=== PATIENT | male | born 1960 | race Caucasian/White ===

== ENCOUNTER 2017-09-08 11:51 | Emergency (ER) | payer MEDICARE, MEDICAID, SELFPAY ==
[2017-09-08 11:51] VITALS: BP 103/82; PULSE 87; RESP 16; TEMP 36.9; BMI 19.9
[2017-09-08 12:26] VITALS: BP 137/96; PULSE 66; RESP 16; O2SAT 98
[2017-09-08] MEDS: 0.9% Normal Saline 1,000 ML 1000 ML IV (12:27)
[2017-09-08 12:36] LABS: Absolute Lymphocyte Count 2.83 X10^3/ul (0.83-4.51); Absolute Neutrophil Count 5.4 X10^3/uL (2.0-7.7); Basophil# 0.03 X10^3/uL; Basophil% 0.3 % (0-1); Eosinophils% 3.2 % (0-5); Hematocrit 42.1 % (40-54); Lymphocyte # 2.83 X10^3/ul (4.0); Lymphocyte % 30.4 % (19-41); Mean Corp Hgb Conc 33.3 g/gl (32-36); Mean Corpuscular Volume 96.3 fL (80-94); Mean Platelet Vol. 10.8 fl (6.2-12.0); Monocyte% 7.5 % (0-10); Neutrophil # 5.42 X10^3/uL (2.7-7.7); Neutrophil % 58.4 % (47-70); Platelet Count 187 K/mm3 (150-450); RBC Distribution Width CV 13.5 % (11.6-14.6); RBC Distribution Width SD 48.2 fl (35.1-43.9); Red Blood Count 4.37 M/mm3 (4.6-6.2); White Blood Count 9.3 K/mm3 (4.4-11.0)
[2017-09-08 12:37] LABS: POSITIVE COUNT NO; POSITIVE DIFFERENTIAL NO; POSITIVE MORPHOLOGY NO
[2017-09-08 12:48] LABS: Anion Gap 6 (5-15); BUN 10 mg/dL (7-18); BUN/Creat Ratio 12.5 RATIO (10-20); Calcium,Total 8.8 mg/dL (8.5-10.1); Chloride 108 mmol/L (98-107); EST Glomerular Filtration Rate 105 mL/min (>60); Est Glom Filt Rate - Afr Amer 127 mL/min (>60); Estimated Creatinine Clearance 86.11 ml/min; Glucose 100 mg/dL (74-106); Potassium 4.2 mmol/L (3.5-5.1); Sodium Level 137 mmol/L (136-145)
--- NOTE | 2017-09-08 13:00 | RAD_ITS ---
STUDY: X-RAY - LEFT FOOT CLINICAL: Male, 57 years old. Trauma 3 months ago. Swollen first metatarsal. TECHNIQUE: 3 view(s) of the foot. COMPARISON: None. FINDINGS: Normal talus, calcaneus, and tarsal bones. Normal visualized subtalar, talonavicular, calcaneocuboid, tarsal and tarsometatarsal articulations. Normal metatarsi. Normal metatarsophalangeal joint of the great toe. Normal tibial and fibular sesamoid bones. Normal interphalangeal joint of the great toe. Normal phalanges of the great toe. Normal second through fifth metatarsophalangeal joints. Normal interphalangeal joints and phalanges of the lesser toes. The soft tissue structures are unremarkable. RAD/Foot min 3 Views IMPRESSION: Normal x-ray examination of the foot. Electronically Signed: Ridge Jain MD at 13:32 EDT , Service support ,
--- NOTE | 2017-09-08 13:00 | RAD_ITS ---
STUDY: X-RAY CHEST REASON FOR EXAM: Male, 57 years old. Wheezing x6 months. TECHNIQUE: Frontal and lateral views of the chest. COMPARISON: July 27, 2016. FINDINGS: There is hyperinflation of the lungs consistent with chronic obstructive lung disease (COPD). There is no pleural effusion. There is no pneumothorax. Normal size heart. There is no demonstrated mediastinal lymphadenopathy or mediastinal mass lesion. Normal visualized pulmonary arteries. Normal visualized aortic arch and descending thoracic aorta. Normal visualized thoracic spine. There is no evident acute osseous abnormality. There is no demonstrated abnormality of the visualized soft tissue structures of the upper abdomen. RAD/Chest PA and Lateral IMPRESSION: Findings consistent with COPD. No acute cardiopulmonary disease. Stable exam. Electronically Signed: Ridge Jain MD at 13:53 EDT , Service support ,
--- NOTE | 2017-09-08 13:06 | ED.VISSUMM ---
- ER Visit Summary Date of Service: 09/08/17 Chief Complaint: Diarrhea History of Present Illness: The patient is a [address] Ben rm. He reports he has diarrhea that began 1 week ago. Is having this twice a day. No blood in stools or black tarry stools. Reports that just before he has to move his bowels he has a sharp lower abdominal pain that is 10 out of 10 severity. This last approximately 1 minute and is resolved by having a bowel movement. He has had nausea without vomiting. Patient reports that he has a chronic cough but it is worse over the past couple of days and he has feels mildly short of breath. He denies any chills. She reports she has had pain over his left first MTP joint stent stubbing his toe approximately 3 months ago. He reports that this pain is 6 out of 10 with walking and he is pain-free at rest. Physical Examination: Vitals: Stable. Afebrile. General: Well-nourished and well-developed. Head: Normocephalic atraumatic. Neck: Supple, no lymphadenopathy. No JVD. Nontender. Cardiovascular: Regular rate and rhythm. No murmurs. Respiratory: No respiratory distress. Clear to auscultation bilaterally. Abdominal: Soft, nontender, nondistended, normal bowel sounds. No guarding, rebound, or peritoneal signs. Back: Nontender. Extremities: Mild tenderness palpation over the left first MTP joint. No erythema or warmth.. Skin: Normal color, no rash. Neurologic: Alert and oriented ?3. Cranial nerves II through XII are intact. Normal strength and sensation. Psych: Normal affect. Test Results: BC is normal. Chem-7 is marked for chloride 108. X-ray shows chronic changes. Left foot x-ray is negative. Emergency Department Course and Treatment: Patient is resting comfortably without complaint. Treatment Plan: He will be discharged with Zofran. Instructed to follow-up with Dr. Medel in 1-2 days if not improving. Disposition: To home in improved and stable condition. Impression: 1. Diarrhea. 2. Left first MTP joint pain, chronic. 3. COPD. This note was generated with [employer] software. It may contain incorrect words, spelling, and punctuation that were not noted in review of the chart prior to signing ED Disposition - Plan for ED Patient: Chief Complaint: Diarrhea Instructions: ED Gastroenteritis Vs Food Poison Prescriptions: Ondansetron [Zofran Odt] 4 mg PO Q8H PRN PRN #10 tablet PRN Reason: Nausea Referrals: Sumit Ludwig MD [Primary Care Provider] - 3-5 Days if not improving
[2017-09-08 13:43] VITALS: PULSE 56; RESP 16; O2SAT 100
== END 2017-09-08 13:44 | disposition home or self-care (01) ==
LOC: ED 12:16
PROVIDERS: Emergency Provider Emergency Medicine; Family Provider Family Medicine; PCP Family Medicine
DX: R19.7 Diarrhea, unspecified (principal); M25.572 Pain in left ankle and joints of left foot; G89.29 Other chronic pain; J44.9 Chronic obstructive pulmonary disease, unspecified; R10.30 Lower abdominal pain, unspecified; R11.0 Nausea; Z72.0 Tobacco use
CPT/HCPCS: 71046; 73630; 80048; 85025; 96360; 99284; J7030

== ENCOUNTER 2018-01-25 17:19 | Emergency (ER) | payer MEDICARE, MEDICAID, SELFPAY ==
[2018-01-25 17:21] VITALS: BP 109/73; PULSE 89; RESP 16; TEMP 37; O2SAT 97; BMI 19.2
--- NOTE | 2018-01-25 17:44 | ED.DCSUM_ITS ---
- ER Visit Summary Date of Service: 01/25/18 Chief Complaint: Abscess History of Present Illness: The patient is a 57 M 2 abscess left axilla increasing size over the past week. No drainage. Has been working more and sweating more. History of similar in the right side. No history of diabetes. No fevers. Physical Examination: General: Alert and oriented ?3, no acute distress HEENT: Normocephalic, atraumatic. Moist mucosa membranes Neck: supple, nontender. Cardiovascular: Regular rate and rhythm, no murmurs Respiratory: Normal breath sounds, symmetric, no distress Abdomen: Soft, nontender, nondistended Extremities: Nontender, no edema, pulses intact ?4 Neuro: no focal neurological deficits. Skin: 1.5 cm fluctuance ?2 left axilla. No surrounding erythema. No drainage. Test Results: [] Emergency Department Course and Treatment: Patient with skin abscess left axilla ?2. No surrounding erythema. Incise and drain in the department with no difficulties. There is exudative drainage. There is copious flush. No indication for antibiotics secondary definitive care with incision and drainage. Wound care discussed. Follow-up with his PCP. Signs and symptoms discussed to return. All questions were answered. Treatment Plan: [] Disposition: Discharged Impression: Left axilla abscess ?2 status post incision and drainage This note was generated with [employer] dictation software. It may contain incorrect words, spelling, and punctuation that were not noted in review of the chart prior to signing ED Disposition - Plan for ED Patient: Disposition: Home or Assisted Living Chief Complaint: Abscess Diagnosis: Abscess of left axilla Instructions: ED Abscess IandD Referrals: Sumit Ludwig MD [Primary Care Provider] - 3-5 Days
[2018-01-25 18:43] VITALS: BP 108/74; PULSE 67; RESP 15; O2SAT 96
== END 2018-01-25 18:46 | disposition home or self-care (01) ==
PROVIDERS: Emergency Provider Emergency Medicine; Family Provider Family Medicine; PCP Family Medicine
DX: L02.412 Cutaneous abscess of left axilla (principal); Z72.0 Tobacco use
CPT/HCPCS: 10060; 99283

== ENCOUNTER 2018-02-18 08:22 | Emergency (ER) | payer MEDICARE, MEDICAID, SELFPAY ==
[2018-02-18 08:22] VITALS: BP 96/60; PULSE 76; RESP 16; TEMP 36.6; O2SAT 98; BMI 18.8
--- NOTE | 2018-02-18 08:38 | ED.DCSUM_ITS ---
- ER Visit Summary Date of Service: 02/18/18 Chief Complaint: [] Left axillary lymph node swelling History of Present Illness: The patient is a 57 M [] patient reports he had intermittent left axillary lymph node swelling, he believes he was seen a week or 2 ago and had 1 of these areas drained he now reports there are 2 other small nodules that are slightly sore one may be draining the others are not. He denies a past history, he does report at one time he was homeless and he had quite a bit of lumps and bumps that had to be drained he is not sure if he has MRSA he is not been on antibiotics recently, he he reports a chronic cough that has been seen for by his physicians diagnosis unclear he does smoke but otherwise his health has been stable no fevers no exposures no other complaints, he only has lesions involving his left axilla Physical Examination: [] He is resting in the bed no distress his vital signs are within normal range his HEENT exam is unremarkable heart tones sound regular the lungs sound distant no obvious abnormalities the abdomen soft nontender upp er lower extremities unremarkable neurologically he is awake moving all 4 the left axilla there are actually 3 red circular lesions that measure about 1 cm that appear firm there is no fluctuance there is no drainage warmth minimal tenderness, the right axilla is unremarkable there is no obvious lymphadenopathy or swelling in the supraclavicular or anterior neck chain, his abdomen soft nontender Test Results: [] Emergency Department Course and Treatment: [] A long conversation with him I explained to him that the exact etiology of these lesions are unclear they could certainly represent small lymph nodes reacting to unspecified condition versus early infection there is nothing that appears to need an I&D, he is not interested in I&D he said he indicates he wants antibiotics I explained to him he would require a more definitive evaluation for all of the above but he declined any further ED evaluation in fact even declined a chest x-ray seems had multiple x-rays related to his shortness of breath and he would prefer outpatient management So he has a clear understanding the exact etiology of why he keeps getting these areas of swelling are unclear there is multiple factors that could be serious life-threatening and he prefers outpatient management, he will be started on Bactrim DS and he will see his physician Dr. Medel early next week for further management and return for change in symptoms Treatment Plan: [] Disposition: [] Home stable declined ED workup Impression: [] Left axillary lymph node swelling versus early infection This note was generated with [employer] dictation software. It may contain incorrect words, spelling, and punctuation that were not noted in review of the chart prior to signing ED Disposition - Plan for ED Patient: Chief Complaint: Abscess Referrals: Sumit Ludwig MD [Primary Care Provider] -
--- NOTE | 2018-02-18 08:38 | ED.DEP ---
ED Disposition - Plan for ED Patient: Chief Complaint: Abscess Instructions: ED Skin Infec MRSA Suspect Conf Prescriptions: Smz/Tmp Ds [Bactrim Ds] 1 tab PO BID #14 tab Referrals: Sumit Ludwig MD [Primary Care Provider] -
== END 2018-02-18 08:51 | disposition home or self-care (01) ==
LOC: ED 08:48
PROVIDERS: Emergency Provider Emergency Medicine; Family Provider Family Medicine; PCP Family Medicine
DX: R59.0 Localized enlarged lymph nodes (principal); R05 Cough
CPT/HCPCS: 99282

== ENCOUNTER 2020-02-18 14:37 | Emergency (ER) | payer MEDICARE, MEDICAID, SELFPAY ==
[2020-02-18 14:39] VITALS: BP 121/80; PULSE 64; RESP 18; TEMP 36.3; O2SAT 98; BMI 19.9
--- NOTE | 2020-02-18 16:20 | RAD_ITS ---
STUDY: X-RAY CHEST REASON FOR EXAM: Male, 59 years old. aches and pains, shortness of breath, sore throat, fever, loss of taste and smell TECHNIQUE: Frontal view COMPARISON: 09/08/2017 FINDINGS: The lungs are hyperaerated. There is no demonstrated pleural abnormality. Normal size heart. Normal mediastinum and jamil. Normal visualized pulmonary arteries. Normal visualized aortic arch and descending thoracic aorta. Normal visualized thoracic spine. Normal visualized ribs, clavicles, and shoulders. There is no demonstrated abnormality of the visualized soft tissue structures of the upper abdomen. RAD/Chest 1 View (Portable) IMPRESSION: Normal x-ray examination of the chest. Electronically Signed: Zhang Sandoval DO at 16:36 EDT Tel [phone], Service support ,
[2020-02-18 16:46] VITALS: BP 211/80; PULSE 64; RESP 18; TEMP 36.3; O2SAT 98
[2020-02-18] MEDS: 0.9% Normal Saline 1,000 ML 999 ML IV (16:51)
[2020-02-18 16:54] VITALS: BP 136/85; PULSE 53; RESP 17; O2SAT 98
[2020-02-18 17:14] LABS: Absolute Lymphocyte Count 2.32 X10^3/uL (0.83-4.51); Absolute Neutrophil Count 4.8 X10^3/uL (2.0-7.7); Basophil# 0.03 X10^3/uL; Basophil% 0.4 % (0-1); Eosinophil# 0.35 X10^3/uL; Eosinophils% 4.2 % (0-5); Hematocrit 42.8 % (40-54); Hemoglobin 13.7 g/dL (13.0-16.5); Lymphocyte # 2.32 X10^3/ul (4.0); Lymphocyte % 28.2 % (19-41); Mean Corpuscular Hgb 31.2 pg (27.0-32.0); Mean Corpuscular Volume 97.5 fL (80-94); Mean Platelet Vol. 11.4 fl (6.2-12.0); Monocyte# 0.74 X10^3/uL; NRBC Flagged by Analyzer 0 % (0-5); Neutrophil # 4.78 X10^3/uL (2.7-7.7); Platelet Count 190 K/mm3 (150-450); RBC Distribution Width CV 13.2 % (11.6-14.6); RBC Distribution Width SD 47.7 fl (35.1-43.9); Red Blood Count 4.39 M/mm3 (4.6-6.2); White Blood Count 8.2 K/mm3 (4.4-11.0)
[2020-02-18 17:35] LABS: Anion Gap 3 (5-15); BUN 13 mg/dL (7-18); Calcium,Total 8.6 mg/dL (8.5-10.1); Chloride 107 mmol/L (98-107); Creatinine, Serum 0.86 mg/dL (0.70-1.30); EST Glomerular Filtration Rate 95 mL/min (>60); Est Glom Filt Rate - Afr Amer 115 mL/min (>60); Estimated Creatinine Clearance 78.13 ml/min; Glucose 84 mg/dL (74-106); Potassium 4.1 mmol/L (3.5-5.1); Sodium Level 140 mmol/L (136-145)
--- NOTE | 2020-02-18 19:22 | ED.DCSUM_ITS ---
- ER Visit Summary Date of Service: 02/18/20 Chief Complaint: Cough History of Present Illness: The patient is a [address] Allred. He reports he has a cough that began 2 months ago. Is productive of white/clear sputum without blood. He denies any sick contacts. He does state that he wears a mask. 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 Patient complains of chills. He has a sore throat history of 10 severity for the past 2 weeks. He complains of sinus pressure. He has had nausea. No vomiting or diarrhea. He denies any chest pain or shortness of breath. Physical Examination: Vitals: Stable. Afebrile. General: Well-nourished and well-developed. Head: Normocephalic atraumatic. Neck: Supple, no lymphadenopathy. No JVD. Nontender. Cardiovascular: Regular rate and rhythm. No murmurs. Respiratory: No respiratory distress. Clear to auscultation bilaterally. Abdominal: Soft, nontender, nondistended, normal bowel sounds. No guarding, rebound, or peritoneal signs. Back: Nontender. Extremities: Nontender, no edema. Skin: Normal color, no rash. Neurologic: Alert and oriented ?3. Cranial nerves II through XII are intact. Normal strength and sensation. Psych: Normal affect. Test Results: CBC is normal. Chem-7 is normal. Clinical Impression(s) from Imaging Studies Chest X-Ray 02/18/20 16:20 IMPRESSION: Normal x-ray examination of the chest. Electronically Signed: Zhang Sandoval DO at 16:36 EDT Tel [phone], Service support , Emergency Department Course and Treatment: Patient is resting comfortably without complaint. He was given a dose of Zithromax p.o. Treatment Plan: Given the fact the patient's had a cough for approximately 2 months I think it is reasonable to treat him with Zithromax. He will be discharged with instructions to follow-up with his primary care physician in 10 to 14 days if not improving. He did have a COVID-19 test sent and is instructed to quarantine until this returns. Return to the emergency department for any worsening symptoms. Disposition: To home in improved and stable condition. Impression: 1. URI, possible COVID-19 infection. This note was generated with [employer] dictation software. It may contain incorrect words, spelling, and punctuation that were not noted in review of the chart prior to signing ED Disposition - Plan for ED Patient: Disposition: Home or Assisted Living Instructions: ED Upper Resp Infec Abx Tx Prescriptions: Azithromycin [Zithromax Z-Mak] 250 mg PO UD #1 box Prescription Printed Referrals: Wicho Vora MD [STAFF PHYSICIAN] - 10-14 Days if not better
[2020-02-18] MEDS: Azithromycin 250 MG Tablet 500 MG PO (19:32)
[2020-02-18 19:33] VITALS: BP 134/88; PULSE 64; RESP 19; O2SAT 98
== END 2020-02-18 19:34 | disposition home or self-care (01) ==
LOC: ED 16:36
PROVIDERS: Emergency Provider Emergency Medicine
DX: J06.9 Acute upper respiratory infection, unspecified (principal); Z20.828 Contact with and (suspected) exposure to other viral communicable diseases; F17.200 Nicotine dependence, unspecified, uncomplicated
CPT/HCPCS: 71045; 80048; 85025; 87635; 96360; 96361; 99285; J7030; U0003

== ENCOUNTER 2020-05-18 15:00 | Emergency (ER) | payer MEDICARE, MEDICAID, SELFPAY ==
[2020-05-18 15:01] VITALS: BP 113/64; PULSE 69; RESP 18; TEMP 36.9; O2SAT 96; BMI 20.8
--- NOTE | 2020-05-18 15:32 | ED.DCSUM_ITS ---
- ER Visit Summary Date of Service: 05/18/20 Chief Complaint: Cough and body aches History of Present Illness: The patient is a 60 M denies any past medical history but currently patient is not seeing any physician. He is on no medications. States he does not felt well for months. He was seen here in [facility] at that time he had a negative chest x-ray. States he was placed on antibiotic start feeling somewhat better. Says he feels like he has had sinus congestion for quite a lengthy period of time and a dry cough. He denies chest pain or shortness of breath. He denies abdominal pain, nausea, vomiting or diarrhea. He denies any dysuria. He denies being short of breath. Physical Examination: Older male no acute distress vital signs stable afebrile. Pulse ox 96% on room air no signs hypoxia. H EENT exam poor dentition otherwise unremarkable. Neck nontender no lymphadenopathy. Lungs clear to auscultation bilaterally. Heart regular rhythm no murmur. Abdomen is soft and nontender. Nondistended normal bowel sounds no peritoneal signs. Extremities moves all 4 calves nontender without edema or cords. Neurologically is awake alert with no focal motor deficit. Back is nontender. Test Results: Portable 1 view chest x-ray interpreted by myself shows chronic changes but no acute process. Normal cardiac silhouette. No infiltrate. Rapid Covid antigen test is negative. Emergency Department Course and Treatment: Patient with URI symptoms clinically I do not hear pneumonia. He does not show a lot of signs of Covid at this time. We will get a portable chest x-ray and a rapid Covid test. Treatment Plan: Symptomatic treatment. Fluids and rest. Tylenol Motrin. Follow-up with [facility] clinic. Disposition: Discharge Impression: Viral URI This note was generated with [employer] dictation software. It may contain incorrect words, spelling, and punctuation that were not noted in review of the chart prior to signing ED Disposition - Plan for ED Patient: Referrals: Care Physician,No Primary [Primary Care Provider] -
--- NOTE | 2020-05-18 15:40 | RAD_ITS ---
STUDY: X-RAY CHEST REASON FOR EXAM: Male, 60 years old. dizzy, nauseated and fatigued. also states he had cough TECHNIQUE: Single AP portable view of the chest. COMPARISON: 02/18/2020 FINDINGS: The lungs are clear and expanded. There is no demonstrated pleural abnormality. Normal size heart. Normal mediastinum and jamil. Normal visualized pulmonary arteries. Normal visualized aortic arch and descending thoracic aorta. Normal visualized thoracic spine. Normal visualized ribs, clavicles, and shoulders. There is no demonstrated abnormality of the visualized soft tissue structures of the upper abdomen. RAD/Chest 1 View (Portable) IMPRESSION: Stable, nonacute portable x-ray examination of the chest. Electronically Signed: Osmin De La Cruz MD (Brooks) at 16:05 EST , Service support ,
--- NOTE | 2020-05-18 16:19 | ED.DEP ---
ED Disposition - Plan for ED Patient: Disposition: Home or Assisted Living Instructions: ED URI, Viral, No Abx (Adult) Referrals: Cherri Rogers [NON-STAFF] - As soon as possible Additional Instructions: Motrin for body aches. Plenty of fluids and rest. Your COVID-19 test is negative. Your chest x-ray is normal.
[2020-05-18 16:33] VITALS: BP 126/92; PULSE 100; RESP 16
== END 2020-05-18 16:34 | disposition home or self-care (01) ==
PROVIDERS: Emergency Provider Emergency Medicine
DX: J06.9 Acute upper respiratory infection, unspecified (principal); F17.200 Nicotine dependence, unspecified, uncomplicated
CPT/HCPCS: 71045; 87426; 99282

== ENCOUNTER → 2020-11-25 19:00 | Outpatient (CLI) | payer MEDICARE, MEDICAID, SELFPAY ==
--- NOTE | 2020-11-25 18:30 | PET_ITS ---
EXAMINATION: FDG PET-CT INDICATIONS: A 60-year-old male with history of pulmonary nodularity. COMPARISON EXAMINATION: CT of the chest report dated 10/24/20 INDEX LESION SIZE SUV INTERPRETATION Left infrahilar region, left lower lobe 3.4 x 5.3-cm (frame 167) 11.7 Fulfills quantitative criteria for viable neoplasm Anterior-middle mediastinum 6.4 x 4.1-cm (largest) (frame 175) 12.6 (max) Fulfills quantitative criteria for viable neoplasm Right lateral, bilateral anterior neck 6.7-mm (largest) (frame 221) 3.3 (max) Fulfills quantitative criteria for viable neoplasm Left proximal humerus 6.3 Fulfills quantitative criteria for viable osseous neoplasm TECHNIQUE: Following the intravenous administration of 13.28 mCi of F-18 deoxyglucose via the left antecubital fossa, multiplanar image acquisitions of the neck, chest, abdomen and pelvis to level of mid thigh, obtained at one hour post radiopharmaceutical administration contemporaneously interpreted with the current CT of the neck, chest, abdomen and pelvis, to level of mid thigh, dated 11/25/[address] of the chest report dated 10/24/20 reveals: BLOOD GLUCOSE LEVEL:?? 89 mg/dl? FINDINGS: 1. Increased glucose metabolism is defined in the left infrahilar region-left lower lobe generating a calculated maximal standard uptake value of 11.7. The maximal axial diameter of the corresponding metabolic, morphologic abnormality on review of CT of the chest dated 11/25/20 is 3.4-cm (transverse) x 5.3-cm (AP). 2. Enhanced tracer concentration is observed in the anterior-middle mediastinum registering a calculated maximal standard uptake value of 12.6. The maximal axial diameter of the corresponding largest metabolic, morphologic abnormality on review of CT of the chest dated 11/25/20 is 6.4-cm (transverse) x 4.1-cm (AP). 3. Facilitated fluorine labeled glucose metabolism is manifest in the right lateral neck involving level III, bilateral anterior neck involving level IV. The calculated maximal standard uptake value is 3.3. The maximal axial diameter of the most conspicuous largest corresponding soft tissue density on review of CT of the neck dated 11/25/20 is 6.7-mm (AP). 4. There is a single nodular focus of increased radiopharmaceutical distribution manifest in the left proximal humerus registering a calculated maximal standard uptake value of 6.3. 5. Normal physiologic distribution of the radiopharmaceutical is apparent in the hepatic (3.0) and splenic parenchyma, both renal units, bladder and visualized intestinal tract. The visualized portion of the cerebral cortical-subcortical structures demonstrate symmetric and preserved glucose metabolism. Diffuse radiopharmaceutical concentration is noted in all four quadrants of the abdomen and pelvis. Pertinent CT findings are as follows: CHEST: There is atherosclerotic calcification defined in the thoracic aorta without evidence of dilatation-aneurysm formation. A left hemithorax pleural effusion reveals no evidence of increased tracer uptake. Bilateral axillary soft tissue densities with fatty hilus are ametabolic. Emphysematous changes are visualized in the right-left upper lung gomez. A ground glass density discerned in the left lower posteromedial lung-left lower lobe reveals no evidence of increased tracer uptake. ABDOMEN AND PELVIS: There is atherosclerotic calcification defined in the abdominal aorta without evidence of dilatation-aneurysm formation. Pelvic arterial calcification is defined. Right and left subcentimeter inguinal soft tissue densities with fatty hilus are non-glucose avid. Calcified phlebolith formation is encountered in the bilateral lower hemipelvis. Mild colonic diverticulosis is visualized without evidence of diverticulitis. SKELETAL: Degenerative changes are noted in the cervical, thoracic and lumbar spine without evidence of increased radiopharmaceutical concentration. PET/PET/CT Tumor Base -Thigh Init IMPRESSION: 1. ABNORMAL EXAMINATION INDICATIVE OF [id number] VIABLE NEOPLASM. 2. Increased FDG concentration noted in the left infrahilar region-left lower lobe corresponding to mass density on review of CT of the chest dated 11/25/20 fulfills quantitative criteria for viable neoplasm. Histopathologic analysis is recommended. 3. Anterior and middle mediastinal hypermetabolic foci fulfill quantitative criteria for viable metastatic disease. (VanTheresa et al, Journal of Clinical Oncology 16:2142, 1998). 4. Right lateral and bilateral anterior neck nodular hypermetabolic abnormalities fulfill quantitative criteria for malignant transformation. 5. The single focus of increased FDG concentration noted in the left proximal humerus fulfills quantitative criteria for viable osseous metastatic disease. (Feng et al, Clinical Nuclear Medicine, 29:161, 2004). Electronic Signature Wilmar Black, D.O. Accurate Quantification of SUVs for this report are calculated using the exclusive [employer]. (U.S. Patent No. 10, [id number] 983). Standardization and correction of the FDG SUV metric via [employer] technology allow for vendor non-specific objective quantitative examination comparison and optimization of the sensitivity and specificity of the FDG PET-CT examination. Electronically Signed: Wilmar Katz DO at 7:50 EDT Tel , Service support ,
== END ==
PROVIDERS: PCP Nurse Practitioner Primary Care
DX: R91.1 Solitary pulmonary nodule (principal)
CPT/HCPCS: 78815; A9552

== ENCOUNTER 2021-02-15 17:56 | Inpatient (IN) | payer MEDICARE, MEDICAID, SELFPAY ==
[2021-02-15] VITALS (12 sets, daily range): BP systolic 79–162; BP diastolic 51–97; PULSE 65–143; RESP 19–40; TEMP 36.3–37.2; O2SAT 85–98; BMI 18.8
--- NOTE | 2021-02-15 18:16 | EKG12_ITS ---
Test Reason : SOB Blood Pressure : / mmHG Vent. Rate : 132 BPM Atrial Rate : 308 BPM P-R Int : 000 ms QRS Dur : 094 ms QT Int : 328 ms P-R-T Axes : 000 -62 096 degrees QTc Int : 485 ms Atrial flutter with variable A-V block with premature ventricular or aberrantly conducted complexes Left anterior fascicular block Anteroseptal infarct , age undetermined Abnormal ECG Confirmed by FRANCK KIMBALL, CARLOS ENRIQUE ([id number]), supervising film or videotape editor ALENA PRADO ([id number]) on 02/17/2021 8:00:24 AM Referred By: RU Confirmed By:CARLOS ENRIQUE JUÁREZ MD
--- NOTE | 2021-02-15 18:18 | EDS_ITS ---
HPI History of Present Illness Chief Complaint: Shortness of Breath Detail of Chief Complaint: Shortness of breath that started earlier today Informant: patient Narrative Narrative: Patient presents to the emergency department complaint of increasing shortness of breath throughout the day. He has history of lung cancer and has metastasis to the brain. He denies any fever. He had a mild cough. He describes it kind of diffuse chest discomfort especially with breathing. Patient denies recent travel or surgery. No history of PE or DVT. [facility] Medical History Brain cancer Lung cancer Home Medications albuterol sulfate 1 - 2 puff INHALATION Q6H PRN PRN 02/15/21 [History Last Taken Unknown] albuterol sulfate 2.5 mg INHALATION Q4H PRN PRN 02/15/21 [History Last Taken Unknown] amiodarone 200 mg PO DAILY 02/15/21 [History Last Taken Unknown] apixaban [Eliquis] 5 mg PO BID 02/15/21 [History Last Taken Unknown] aspirin 81 mg PO DAILY 02/15/21 [History Last Taken Unknown] digoxin 125 mcg PO DAILY 02/15/21 [History Last Taken Unknown] ferrous sulfate [FeroSul] 325 mg PO QODAY 02/15/21 [History Last Taken Unknown] metoprolol succinate 100 mg PO DAILY 02/15/21 [History Last Taken Unknown] mirtazapine 15 mg PO QHS 02/15/21 [History Last Taken Unknown] omeprazole 20 mg PO DAILY 02/15/21 [History Last Taken Unknown] prochlorperazine maleate 10 mg PO Q6H PRN 02/15/21 [History Last Taken Unknown] Allergy/AdvReac Type Severity Reaction Status Date / Time Penicillins Allergy Hives Verified 02/15/21 17:58 shellfish derived Allergy Hives Verified 02/15/21 17:58 Family History (Updated 02/15/21 @ 22:[address] Grover Mendez MD) Other Cancer Social History (Updated 02/15/21 @ 22:[address] Grover Mendez MD) Smoking Status: Current every day smoker tobacco type: cigarettes ROS ROS ED Constitutional Constitutional ED: Reports systems reviewed and no addt'l complaints, except as documented; Denies body ache(s), change in weight or chills Eyes Eyes: Denies acute decrease in peripheral vision, change in vision, double vision or loss of vision ENT ENT ED: Reports none; Denies ear pain, lip swelling, loss taste/smell, neck pain, otalgia or sore throat Cardiovascular Cardiovascular: Reports none; Denies abdominal pain, chest pain with activity, leg edema, lightheadedness, palpitations, rapid heart rate or syncope Respiratory/Chest Respiratory/Chest: Reports none, cough, dyspnea, dyspnea on exertion and sputum; Denies change in mental status, dry cough, hemoptysis, shortness of breath at rest or shortness of breath with exertion Gastrointestinal Gastrointestinal: Reports none, nausea and vomiting; Denies abdominal pain, change in stool character, diarrhea, hematemesis, hematochezia, melena or rectal bleeding Genitourinary Genitourinary ED: Reports none; Denies abdominal discomfort, anuria, dysuria, genital pain or polyuria Musculoskeletal Musculoskeletal: Reports none; Denies arthralgias, back pain, difficulty walking, extremity pain, muscle weakness or myalgias Integumentary Reports none; Denies abscess or rash Neurologic Neurologic: Reports none; Denies abnormal gait, confusion, focal weakness, frequent falls, headache(s), loss of vision, numbness, paresthesias, radicular pain, vertigo or weakness Psychiatric Psychiatric: Reports systems reviewed and no addt'l complaints, except as documented and none; Denies behavioral changes, confusion, difficulty concentrating, hallucinations, suicidal ideation, tactile hallucinations or visual hallucinations Endocrine Endocrinology: Denies none, cold intolerance, excessive sweating, fatigue or heat intolerance Hematologic/Lymphatic Hematologic/Lymphatic: Reports none; Denies anemia, easy bleeding or easy bruising Allergic/Immunologic Allergic/Immunologic ED: Denies as per HPI, none, lip swelling, mouth swelling, throat swelling, tongue swelling or hives EXAM Physical Exam Const Vital Signs: 02/15/21 17:59 02/15/21 18:06 02/15/21 18:28 Temperature 98.3 F Temperature Source Axillary Pulse Rate 95 92 Respiratory Rate 28 H 30 H Respiratory Effort Short of Breath Respiratory Pattern Tachypnea Blood Pressure 162/97 H Blood Pressure Mean 118 Pulse Ox 85 95 Oxygen Delivery Method Room Air Non-Rebreather Non-Rebreather Oxygen Flow Rate (L/min) 10 Fraction of Inspired Oxygen (FIO2) 02/15/21 18:44 02/15/21 19:03 02/15/21 19:37 Temperature 98.4 F 98.9 F Temperature Source Axillary Temporal Pulse Rate 135 H 129 H 135 H Respiratory Rate 36 H 34 H 25 H Respiratory Effort Respiratory Pattern Blood Pressure 111/59 L 106/77 Blood Pressure Mean 76 86 Pulse Ox 97 98 Oxygen Delivery Method Non-Rebreather Non-Rebreather Oxygen Flow Rate (L/min) 10 Fraction of Inspired Oxygen (FIO2) 02/15/21 20:20 02/15/21 21:01 02/15/21 21:36 Temperature 98.9 F 97.4 F L Temperature Source Temporal Temporal Pulse Rate 137 H 129 H 113 H Respiratory Rate 27 H 26 H 27 H Respiratory Effort Respiratory Pattern Blood Pressure 92/75 92/51 L 79/54 L Blood Pressure Mean 80 64 62 Pulse Ox 93 93 96 Oxygen Delivery Method Venturi Mask Venturi Mask Venturi Mask Oxygen Flow Rate (L/min) 6 Fraction of Inspired Oxygen (FIO2) 31 Positive well nourished and well developed General Appearance ED: well developed and NAD HEENT Reports TM's clear and moist mucous membranes normocephalic and atraumatic; Negative for trauma or tenderness Tympanic Membrane ED: Yes TM's clear Eyes PERRL and EOMs intact bilaterally General Eye ED: Negative for pale conjunctiva or scleral icterus Neck no lymphadenopathy, supple and no JVD General: Negative for tenderness Chest Wall inspection of chest normal and palpation of chest normal Chest: Negative for tenderness Resp No normal respiratory effort and No clear to auscultation bilaterally Resp Narrative: Patient has mild tachypnea. Effort and Inspection: Negative for respiratory distress or pain with movement Auscultation: rhonchi, wheezes and diminished lung sounds Cardio regular rate, regular rhythm, S1 normal heart sound, S2 normal heart sound and no murmurs Peripheral Pulses: pulses 2+ throughout GI normal to inspection, nondistended, normoactive bowel sounds, soft to palpation, non-tender, non-distended and no masses Back/Spine no CVA tenderness and no thoracic nor lumbar tenderness Extremity normal to inspection General Extremety ED: Negative for edema General Extremity: Negative for edema Neuro oriented x3, CN's II-XII intact bilaterally, no sensory deficits noted and gait normal Sensorium / Orientation: awake, alert, oriented to person, oriented to place and oriented to time Motor Exam: strength 5/5 throughout and strength abnormal Psych mental status grossly normal Skin no rashes or lesions noted and no wounds MDM MDM MDM Narrative Medical decision making narrative: Patient was started on Levaquin IV on arrival. Patient was medicated with DuoNeb aerosol as well as Solu-Medrol. Patient was ordered a liter fluid bolus followed by a second liter. He initially did receive 20 mg of Cardizem as he did go into atrial flutter with a heart rate in 130s after coming in in a sinus rhythm. Patient blood pressure did trend down into the 70 systolic however he is mentating normally and he is not diaphoretic. Case was discussed with oncology on-call and they did not feel he would warrant transfer to tertiary care center. Patient wants full treatment and does not want to be on hospice or comfort measures. Lab Data Attestation: I reviewed the patient's lab results. Labs: Laboratory Results - last 24 hr 02/15/21 02/15/21 02/15/21 18:16 18:16 18:16 WBC 21.1 H RBC 4.42 L Hgb 13.9 Hct 42.4 MCV 95.9 H MCH 31.4 MCHC 32.8 RDW Std Deviation 49.6 H RDW Coeff of Nafisa 13.9 Plt Count 395 MPV 11.3 Immature Gran % (Auto) 1.700 H Neut % (Auto) 81.7 H Lymph % (Auto) 5.6 L [place] % (Auto) 10.7 H Eos % (Auto) 0.0 Baso % (Auto) 0.3 Absolute Neuts (auto) 17.2 H Absolute Lymphs (auto) 1.18 Nucleated RBC % 0 Differential Comment SEE COMMENT Diff Path Review May foll Platelet Estimate ADEQUATE RBC Morphology N CHROM Anisocytosis 1+ Macrocytosis 1+ Ovalocytes RARE D-Dimer Quant (PE/DVT) 3.23 H* Sodium 136 Potassium 4.2 Chloride 100 Carbon Dioxide 26.0 Anion Gap 10 BUN 16 Creatinine 0.89 Estim Creat Clear Calc 70.36 Est GFR (MDRD) Af Amer 112 Est GFR (MDRD) Non-Af 92 BUN/Creatinine Ratio 18.0 Glucose 158 H Lactic Acid Calcium 10.2 H Troponin I High Sens 31 B-Natriuretic Peptide 02/15/21 02/15/21 18:16 18:16 WBC RBC Hgb Hct MCV MCH MCHC RDW Std Deviation RDW Coeff of Nafisa Plt Count MPV Immature Gran % (Auto) Neut % (Auto) Lymph % (Auto) [place] % (Auto) Eos % (Auto) Baso % (Auto) Absolute Neuts (auto) Absolute Lymphs (auto) Nucleated RBC % Differential Comment Diff Path Review Platelet Estimate RBC Morphology Anisocytosis Macrocytosis Ovalocytes D-Dimer Quant (PE/DVT) Sodium Potassium Chloride Carbon Dioxide Anion Gap BUN Creatinine Estim Creat Clear Calc Est GFR (MDRD) Af Amer Est GFR (MDRD) Non-Af BUN/Creatinine Ratio Glucose Lactic Acid 3.4 H* Calcium Troponin I High Sens B-Natriuretic Peptide 98.0 Radiography Chest X-Ray - ED: 1 View Diagnostic Testing: Radiology Impression Chest X-Ray 02/15/21 19:05 IMPRESSION: 9.3 cm left perihilar lung mass with likely collapse of the left upper lobe. Electronically Signed: David Flores MD at 19:42 EDT Tel , Service support , Chest CTA 02/15/21 19:29 IMPRESSION: 1. No acute pulmonary embolism. 2. Left upper lobe collapse and postobstructive pneumonia. Possibly underlying tumor involvement. 3. Severe disease progression. Massive diffusely invasive mediastinal tumor. 4. Increasing left lower lobe superior segment tumor. 5. New right upper lung metastasis. 6. Left upper arm soft tissue/humerus metaphysis. 7. Severe emphysema. Electronically Signed: Donaldo Mckeon MD at 20:51 EDT Tel , Service support , Brain CT 02/15/21 21:04 IMPRESSION: No acute intracranial abnormality. Specifically, no evidence of brain metastases. If high concern for metastases, recommend either MRI brain with contrast or repeat CT head with contrast. Electronically Signed: David Flores MD at 21:43 EDT Tel , Service support , 1 view chest x-ray obtained interpreted by myself as left mediastinal lung mass. Patient had increased markings in the left upper and lower lobes. Radiology read x-ray is 9.3 cm left perihilar lung mass with likely collapse of the left upper lobe. EKG Initial EKG: Attestation: I personally reviewed and interpreted this EKG as follows: Comments: Atrial flutter with a ventricular rate of 132 bpm with old anterior septal infarct noted. 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
[2021-02-15] MEDS: 0.9% Normal Saline 1,000 ML 150 ML IV (18:26)
[2021-02-15] MEDS: MethylPREDNISolone 125 MG/2 ML Vial IV (18:28)
[2021-02-15 18:34] LABS: Absolute Lymphocyte Count 1.18 X10^3/uL (0.83-4.51); Absolute Neutrophil Count 17.2 X10^3/uL (2.0-7.7); Basophil# 0.07 X10^3/uL; Basophil% 0.3 % (0-1); Hematocrit 42.4 % (40-54); Hemoglobin 13.9 g/dL (13.0-16.5); Lymphocyte # 1.18 X10^3/ul (0.83-4.51); Lymphocyte % 5.6 % (19-41); Mean Corp Hgb Conc 32.8 g/dL (32-36); Mean Corpuscular Hgb 31.4 pg (27.0-32.0); Mean Corpuscular Volume 95.9 fL (80-94); Mean Platelet Vol. 11.3 fl (6.2-12.0); Monocyte# 2.25 X10^3/uL; Monocyte% 10.7 % (0-10); NRBC Flagged by Analyzer 0 % (0-5); Neutrophil # 17.19 X10^3/uL (2.7-7.7); Neutrophil % 81.7 % (47-70); POSITIVE DIFFERENTIAL YES; Platelet Count 395 K/mm3 (150-450); RBC Distribution Width CV 13.9 % (11.6-14.6); RBC Distribution Width SD 49.6 fl (35.1-43.9); Red Blood Count 4.42 M/mm3 (4.6-6.2); White Blood Count 21.1 K/mm3 (4.4-11.0)
[2021-02-15] MEDS: Ipratropium/Albuterol Sulfate 3 ML AMPUL.NEB INHALATION (18:44)
[2021-02-15] MEDS: Albuterol 2.5 MG/3 ML VIAL.NEB. INHALATION (18:44)
[2021-02-15 18:50] LABS: Anion Gap 10 (5-15); BUN 16 mg/dL (7-18); Calcium,Total 10.2 mg/dL (8.5-10.1); Chloride 100 mmol/L (98-107); Creatinine, Serum 0.89 mg/dL (0.70-1.30); D-Dimer Quantitative (DVT/PE) 3.23 FEU/ug/m (0.27-0.49); EST Glomerular Filtration Rate 92 mL/min (>60); Est Glom Filt Rate - Afr Amer 112 mL/min (>60); Estimated Creatinine Clearance 70.36 ml/min; Glucose 158 mg/dL (74-106); Potassium 4.2 mmol/L (3.5-5.1); Sodium Level 136 mmol/L (136-145); Troponin-I HS 31 pg/mL (3.0-78.0)
[2021-02-15 18:51] LABS: Differential Indicated SCAN CRITERIA MET
[2021-02-15 18:52] LABS: Lactic Acid 3.4 mmol/L (0.4-1.9)
[2021-02-15] MEDS: dilTIAZem 25 MG/5 ML Vial 20 MG IV BOLUS (18:59)
[2021-02-15 19:01] LABS: Platelet Estimate ADEQUATE (ADEQ); Red Cell Morphology N CHROM NORMAL (NORM C&C)
[2021-02-15 19:02] LABS: Anisocytosis 1+; Macrocytosis 1+; Ovalocyte RARE
--- NOTE | 2021-02-15 19:05 | RAD_ITS ---
INDICATION: dyspnea -- dyspnea EXAMINATION/TECHNIQUE: X-RAY - XR Chest 1 View COMPARISON: 05/18/2020. FINDINGS: Left perihilar lung mass measuring approximately 9.3 x 6 cm . There is decreased aeration of the left lung with likely collapse of the left upper lobe. The cardiomediastinal silhouette is unremarkable. No pleural effusion or pneumothorax. No acute osseous abnormalities. RAD/Chest 1 View (Portable) IMPRESSION: 9.3 cm left perihilar lung mass with likely collapse of the left upper lobe. Electronically Signed: David Flores MD at 19:42 EDT Tel , Service support ,
--- NOTE | 2021-02-15 19:29 | CT_ITS ---
STUDY: CTA CHEST REASON FOR EXAM: Male, 60 years old. Dyspnea RADIATION DOSAGE (If Supplied By Facility): CTDIvol = ( 9.68 ) mGy, DLP = ( 268.53 ) mGycm TECHNIQUE: The examination was performed with the intravenous administration of IV 75mL Isovue-370. Post-processing of the angiographic images was performed, with multiplanar reformation and 3D reconstruction. Individualized dose optimization techniques were used for this CT. COMPARISON: 25 November 2020 FINDINGS: Since November central mediastinal tumor has increased with diffuse invasion and circumferential encasement of multiple structures. Tumor measures approximately 10 cm in transverse dimension. There is left bronchial stent. However, left bronchus is distally completely occluded. There is diffuse heterogeneously enhancing consolidation of the entire left upper lobe and part of the superior segment of the left lower lobe. This likely represents combination of collapse, postobstructive pneumonia and tumor. Left lower lobe superior segment tumor has increased and developed satellite tumor nodules. Aorta is intact and normal caliber. There is broad interface between the tumor and aorta, with possible focal invasion along the inferolateral surface. There is no pulmonary embolism. There is broad interface between the tumor and pulmonary artery likely with minimal focal invasion. There is encasement and narrowing of some of the left branches. Right lung is severely emphysematous. There is a 1.3 cm right upper lobe posterior segment metastasis, new since November. Superior vena cava is patent and not involved with the tumor. There is only 180 degree, 50% circumference contact between the mediastinal tumor and SVC. There is small pericardial effusion. Cardiac chambers are normal. There is heterogeneous enhancing soft tissue along the inferior edge of the right scapula. There is heterogeneously enhancing tumor posterior to the proximal left humerus. CT/CTA Chest W/WO Contrast IMPRESSION: 1. No acute pulmonary embolism. 2. Left upper lobe collapse and postobstructive pneumonia. Possibly underlying tumor involvement. 3. Severe disease progression. Massive diffusely invasive mediastinal tumor. 4. Increasing left lower lobe superior segment tumor. 5. New right upper lung metastasis. 6. Left upper arm soft tissue/humerus metaphysis. 7. Severe emphysema. Electronically Signed: Donaldo Mckeon MD at 20:51 EDT Tel , Service support ,
--- NOTE | 2021-02-15 19:33 | ED.RN ---
ATTEMPTED TO WASTE 1 MG OF ATIVAN WITH CORTEZ ELIAS. ACCUDOSE STATES ALL OF THE MEDICATION WAS WASTED. ONLY 1 MG WASTED. 1 MG GIVEN TO PT
[2021-02-15] MEDS: LORazepam 2 MG/ML Syringe 1 MG IV (19:35)
[2021-02-15] MEDS: levoFLOXacin IV 750 MG/150 ML BAG 100 MG IV (20:15)
--- NOTE | 2021-02-15 21:04 | CT_ITS ---
EXAMINATION : Head CT w/out contrast HISTORY : brain mets COMPARISON : None. TECHNIQUE : Multiple contiguous axial images were obtained from the skull base to the vertex without intravenous contrast. A radiation dose optimization technique was used for this scan. FINDINGS : The ventricles and sulci are normal in size. There is no evidence for acute intracranial hemorrhage, mass effect, or midline shift. There is no extra-axial fluid collection. There is normal gorman-white differentiation, without CT evidence of acute ischemia or infarct. The skull base and calvarium are unremarkable. The orbits are unremarkable. The paranasal sinuses are clear. The mastoid air cells are well-aerated. The soft tissues are unremarkable. CT/Brain/Head without Contrast IMPRESSION: No acute intracranial abnormality. Specifically, no evidence of brain metastases. If high concern for metastases, recommend either MRI brain with contrast or repeat CT head with contrast. Electronically Signed: David Flores MD at 21:43 EDT Tel , Service support ,
--- NOTE | 2021-02-15 21:46 | HP.PCM.HOS_ITS ---
HPI - General General Date of Admission: 02/15/21 Date of Service: 02/15/21 Chief Complaint: Shortness of breath HPI Narrative ROSAURA RIBERA, is a 60 M with a significant history of tobacco abuse; metastatic lung cancer who presents to emergency department with shortness of breath. Associated with his symptom is chills. History is difficult to obtain because patient is somnolent and hardly talks. [facility] Medical History Brain cancer Lung cancer Home Medications albuterol sulfate 1 - 2 puff INHALATION Q6H PRN PRN 02/15/21 [History Last Taken Unknown] albuterol sulfate 2.5 mg INHALATION Q4H PRN PRN 02/15/21 [History Last Taken Unknown] amiodarone 200 mg PO DAILY 02/15/21 [History Last Taken Unknown] apixaban [Eliquis] 5 mg PO BID 02/15/21 [History Last Taken Unknown] aspirin 81 mg PO DAILY 02/15/21 [History Last Taken Unknown] digoxin 125 mcg PO DAILY 02/15/21 [History Last Taken Unknown] ferrous sulfate [FeroSul] 325 mg PO QODAY 02/15/21 [History Last Taken Unknown] metoprolol succinate 100 mg PO DAILY 02/15/21 [History Last Taken Unknown] mirtazapine 15 mg PO QHS 02/15/21 [History Last Taken Unknown] omeprazole 20 mg PO DAILY 02/15/21 [History Last Taken Unknown] prochlorperazine maleate 10 mg PO Q6H PRN 02/15/21 [History Last Taken Unknown] Allergy/AdvReac Type Severity Reaction Status Date / Time Penicillins Allergy Hives Verified 02/15/21 17:58 shellfish derived Allergy Hives Verified 02/15/21 17:58 Family History (Updated 02/15/21 @ 22:[address] Grover Mendez MD) Other Cancer Surgical History unable to obtain unable to obtain Social History (Updated 02/15/21 @ 22:[address] Grover Mendez MD) Smoking Status: Current every day smoker tobacco type: cigarettes ROS Review of Systems ROS Unobtainable: due to mental status Vital Signs Vital Signs Vital Signs: 02/15/21 17:59 02/15/21 18:06 02/15/21 18:28 Temperature 98.3 F Temperature Source Axillary Pulse Rate 95 92 Respiratory Rate 28 H 30 H Respiratory Effort Short of Breath Respiratory Pattern Tachypnea Blood Pressure 162/97 H Blood Pressure Mean 118 Pulse Ox 85 95 Oxygen Delivery Method Room Air Non-Rebreather Non-Rebreather Oxygen Flow Rate (L/min) 10 Fraction of Inspired Oxygen (FIO2) 02/15/21 18:44 02/15/21 19:03 02/15/21 19:37 Temperature 98.4 F 98.9 F Temperature Source Axillary Temporal Pulse Rate 135 H 129 H 135 H Respiratory Rate 36 H 34 H 25 H Respiratory Effort Respiratory Pattern Blood Pressure 111/59 L 106/77 Blood Pressure Mean 76 86 Pulse Ox 97 98 Oxygen Delivery Method Non-Rebreather Non-Rebreather Oxygen Flow Rate (L/min) 10 Fraction of Inspired Oxygen (FIO2) 02/15/21 20:20 02/15/21 21:01 02/15/21 21:36 Temperature 98.9 F 97.4 F L Temperature Source Temporal Temporal Pulse Rate 137 H 129 H 113 H Respiratory Rate 27 H 26 H 27 H Respiratory Effort Respiratory Pattern Blood Pressure 92/75 92/51 L 79/54 L Blood Pressure Mean 80 64 62 Pulse Ox 93 93 96 Oxygen Delivery Method Venturi Mask Venturi Mask Venturi Mask Oxygen Flow Rate (L/min) 6 Fraction of Inspired Oxygen (FIO2) 31 Weight Weight: 57.8 kg Body Mass Index (BMI) 18.8 Physical Exam Narrative Physical exam: General: Sickly looking Head: Normocephalic, atraumatic, no tenderness Eyes: PERRLA, EOMI ENT, no trauma, moist mucous membranes, no rhinorrhea Neck: Nontender, full range of motion, no spinal tenderness, deformities, step- off CVS: Tachycardia. Irregularly irregular rate and rhythm. S1-S2 present. No murmur, gallop or rub. Respiratory : Tachypnea on Venturi mask. Diminished, chest wall nontender, no wheezing Abdomen: Soft, nontender, nondistended, normal bowel sounds, no masses : Deferred Back: Nontender, no CVA tenderness, no midline spinal tenderness, deformities, step-offs Extremities: Nontender full range of motion, no trauma. Cachectic Skin: Normal color, no trauma, abrasions Neuro: Somnolent, oriented, cranial nerves II through XII grossly intact. Psychiatry: Flat affect. Monotone voice. Results Lab / Micro Data Result Diagrams: 02/15/21 18:16 02/15/21 18:16 Labs: Laboratory Results - last 24 hr 02/15/21 18:16: WBC 21.1 H, RBC 4.42 L, Hgb 13.9, Hct 42.4, MCV 95.9 H, MCH 31.4, MCHC 32.8, RDW Std Deviation 49.6 H, RDW Coeff of Nafisa 13.9, Plt Count 395, MPV 11.3, Immature Gran % (Auto) 1.700 H, Neut % (Auto) 81.7 H, Lymph % (Auto) 5.6 L, [place] % (Auto) 10.7 H, Eos % (Auto) 0.0, Baso % (Auto) 0.3, Absolute Neuts (auto) 17.2 H, Absolute Lymphs (auto) 1.18, Nucleated RBC % 0, Differential Comment SEE COMMENT, Diff Path Review May foll, Platelet Estimate ADEQUATE, RBC Morphology N CHROM, Anisocytosis 1+, Macrocytosis 1+, Ovalocytes RARE 02/15/21 18:16: D-Dimer Quant (PE/DVT) 3.23 H* 02/15/21 18:16: Sodium 136, Potassium 4.2, Chloride 100, Carbon Dioxide 26.0, Anion Gap 10, BUN 16, Creatinine 0.89, Estim Creat Clear Calc 70.36, Est GFR (M DRD) Af Amer 112, Est GFR (MDRD) Non-Af 92, BUN/Creatinine Ratio 18.0, Glucose 158 H, Calcium 10.2 H, Troponin I High Sens 31 02/15/21 18:16: B-Natriuretic Peptide 98.0 02/15/21 18:16: Lactic Acid 3.4 H* Micro: Microbiology 02/15/21 18:20 Nasal Secretion SARS-CoV-2 Antigen (Rapid) - Final Radiology Impression Chest X-Ray 02/15/21 19:05 IMPRESSION: 9.3 cm left perihilar lung mass with likely collapse of the left upper lobe. Electronically Signed: David Flores MD at 19:42 EDT Tel , Service support , Chest CTA 02/15/21 19:29 IMPRESSION: 1. No acute pulmonary embolism. 2. Left upper lobe collapse and postobstructive pneumonia. Possibly underlying tumor involvement. 3. Severe disease progression. Massive diffusely invasive mediastinal tumor. 4. Increasing left lower lobe superior segment tumor. 5. New right upper lung metastasis. 6. Left upper arm soft tissue/humerus metaphysis. 7. Severe emphysema. Electronically Signed: Donaldo Mckeon MD at 20:51 EDT Tel , Service support , Assessment & Plan Assessment/Plan (1) Sepsis: QUALIFIERS: Acute respiratory failure type: with hypoxia Sepsis acute organ dysfunction status: with acute organ dysfunction Sepsis type: sepsis due to unspecified organism Severe sepsis acute organ dysfunction type: acute respiratory failure Severe sepsis shock status: without septic shock Qualified Code(s): A41.9 - Sepsis, unspecified organism; R65.20 - Severe sepsis without septic shock; J96.01 - Acute respiratory failure with hypoxia (2) Severe protein-calorie malnutrition: (3) Lung mass: (4) Septic shock: PLAN: Septic secondary to postoperative pneumonia Lactic acid: 3. 4; trend. qSOFA recorded today (systolic blood pressure less or equal to 100; respiratory rate more than 22; altered mental status) Respiratory failure requiring Ventimask. Initial O2 sat 85; respiratory rate as high as 40. SIRS criteria: Heart rate of more than 90; systolic blood pressure less than 90 respiratory rate of more than 20; white count of 21.1; with bandemia 1.7%; neutrophilia 81.7%; lymphopenia 5.6%; and monocytosis of 10.7. D-dimer 3.23. Chest CTA with no acute pulmonary embolism. Actual CT image was independently visualized and agree with radiologist interpretation. Severe lung cancer with massive diffusely invasive mediastinal tumor and left upper lung collapse with postoperative pneumonia Blood culture ?2 is pending Antibiotics : Started on Levaquin at the emergency department. Levaquin IV continued. Aztreonam and vancomycin ordered. Patient has hives allergy to penicillins. Check MRSA nares. Emergency department doctor discussed case with oncologist on-call who recommended steroids to decrease inflammation. Solu-Medrol given to the emergency department and continued. Received normal saline bolus at the emergency department. We start maintenance normal saline hydration. Levophed drip ordered. DuoNeb scheduled. Albuterol as needed Legionella antigen screen and Strep antigen ordered Hold all p.o. medicines as patient is too lethargic Severe protein calorie malnutrition Patient is a stable consult. Patient is to somnolent for protein shake at this time. Nutrition consult . Metastatic lung cancer Emergency Department doctor discussed the case with oncology. Oncology consult. DVT prophylaxis On home Eliquis. Patient is too lethargic. Will start patient on Lovenox. Charges/Coding Visit Charges Inpatient E&M: 39362 Init Hosp L3
[2021-02-15] MEDS: 0.9% Normal Saline 1,000 ML 999 ML IV ×2 (21:50→22:08)
[2021-02-15 22:29] LABS: Reflex Lactate? Y
[2021-02-15 23:32] LABS: Lactic Acid 2.5 mmol/L (0.4-1.9)
[2021-02-16] VITALS (32 sets, daily range): BP systolic 80–144; BP diastolic 53–89; PULSE 60–153; RESP 18–35; TEMP 36.1–36.9; O2SAT 87–97; BMI 18.7
[2021-02-16] MEDS: Enoxaparin 60 MG/0.6 ML Syringe SC ×3 (01:04→20:12)
--- NOTE | 2021-02-16 01:22 | SEPSISNOTE ---
Sepsis Note Physical Exam/Vitals Objective: Chest X-Ray 02/15/21 19:05 IMPRESSION: 9.3 cm left perihilar lung mass with likely collapse of the left upper lobe. Electronically Signed: David Flores MD at 19:42 EDT Tel , Service support , Chest CTA 02/15/21 19:29 IMPRESSION: 1. No acute pulmonary embolism. 2. Left upper lobe collapse and postobstructive pneumonia. Possibly underlying tumor involvement. 3. Severe disease progression. Massive diffusely invasive mediastinal tumor. 4. Increasing left lower lobe superior segment tumor. 5. New right upper lung metastasis. 6. Left upper arm soft tissue/humerus metaphysis. 7. Severe emphysema. Electronically Signed: Donaldo Mckeon MD at 20:51 EDT Tel , Service support , Brain CT 02/15/21 21:04 IMPRESSION: No acute intracranial abnormality. Specifically, no evidence of brain metastases. If high concern for metastases, recommend either MRI brain with contrast or repeat CT head with contrast. Electronically Signed: David Flores MD at 21:43 EDT Tel , Service support , Temp Pulse Resp BP Pulse Ox 98.1 F 68 27 H 82/57 L 92 02/15/21 23:41 02/16/21 00:50 02/15/21 23:41 02/15/21 23:41 02/15/21 23:41 02/16/21 02/15/21 02/15/21 00:30 22:50 18:16 WBC RBC Hgb Hct MCV MCH MCHC RDW Std Deviation RDW Coeff of Nafisa Plt Count MPV Immature Gran % (Auto) Neut % (Auto) Lymph % (Auto) [place] % (Auto) Eos % (Auto) Baso % (Auto) Absolute Neuts (auto) Absolute Lymphs (auto) Nucleated RBC % Differential Comment Diff Path Review Platelet Estimate RBC Morphology Anisocytosis Macrocytosis Ovalocytes D-Dimer Quant (PE/DVT) Sodium Potassium Chloride Carbon Dioxide Anion Gap BUN Creatinine Estim Creat Clear Calc Est GFR (MDRD) Af Amer Est GFR (MDRD) Non-Af BUN/Creatinine Ratio Glucose Lactic Acid 2.5 H* 3.4 H* Calcium Troponin I High Sens B-Natriuretic Peptide MRSA (PCR) Pending 02/15/21 02/15/21 02/15/21 18:16 18:16 18:16 WBC RBC Hgb Hct MCV MCH MCHC RDW Std Deviation RDW Coeff of Nafisa Plt Count MPV Immature Gran % (Auto) Neut % (Auto) Lymph % (Auto) [place] % (Auto) Eos % (Auto) Baso % (Auto) Absolute Neuts (auto) Absolute Lymphs (auto) Nucleated RBC % Differential Comment Diff Path Review Platelet Estimate RBC Morphology Anisocytosis Macrocytosis Ovalocytes D-Dimer Quant (PE/DVT) 3.23 H* Sodium 136 Potassium 4.2 Chloride 100 Carbon Dioxide 26.0 Anion Gap 10 BUN 16 Creatinine 0.89 Estim Creat Clear Calc 70.36 Est GFR (MDRD) Af Amer 112 Est GFR (MDRD) Non-Af 92 BUN/Creatinine Ratio 18.0 Glucose 158 H Lactic Acid Calcium 10.2 H Troponin I High Sens 31 B-Natriuretic Peptide 98.0 MRSA (PCR) 02/15/21 18:16 WBC 21.1 H RBC 4.42 L Hgb 13.9 Hct 42.4 MCV 95.9 H MCH 31.4 MCHC 32.8 RDW Std Deviation 49.6 H RDW Coeff of Nafisa 13.9 Plt Count 395 MPV 11.3 Immature Gran % (Auto) 1.700 H Neut % (Auto) 81.7 H Lymph % (Auto) 5.6 L [place] % (Auto) 10.7 H Eos % (Auto) 0.0 Baso % (Auto) 0.3 Absolute Neuts (auto) 17.2 H Absolute Lymphs (auto) 1.18 Nucleated RBC % 0 Differential Comment SEE COMMENT Diff Path Review May foll Platelet Estimate ADEQUATE RBC Morphology N CHROM Anisocytosis 1+ Macrocytosis 1+ Ovalocytes RARE D-Dimer Quant (PE/DVT) Sodium Potassium Chloride Carbon Dioxide Anion Gap BUN Creatinine Estim Creat Clear Calc Est GFR (MDRD) Af Amer Est GFR (MDRD) Non-Af BUN/Creatinine Ratio Glucose Lactic Acid Calcium Troponin I High Sens B-Natriuretic Peptide MRSA (PCR) Attestation Sepsis Attestation: Sepsis re-evaluation was performed
--- NOTE | 2021-02-16 02:04 | PCM.RX.CS ---
Consult Pharmacy has been consulted to manage selected antiobiotic: Vancomycin Type of Consult: New start Suspected Infection: Sepsis Prior Doses of Antibiotics Received/Current Regimen: Medications Vancomycin HCl 750 mg/ Sodium (Chloride) 265 mls @ 250 mls/hr IV Q12H ZARINA Vancomycin HCl 1,500 mg/ (Sodium Chloride) 530 mls @ 250 mls/hr IV X1 ONE Stop: 02/16/21 03:07 Last Admin: 02/16/21 01:49 Dose: 250 mls/hr Labs: Sodium 136 mmol/L (136-145) 02/15/21 18:16 Potassium 4.2 mmol/L (3.5-5.1) 02/15/21 18:16 Chloride 100 mmol/L (98-107) 02/15/21 18:16 Carbon Dioxide 26.0 mmol/L (21.0-32.0) 02/15/21 18:16 Anion Gap 10 (5-15) 02/15/21 18:16 BUN 16 mg/dL (7-18) 02/15/21 18:16 Creatinine 0.89 mg/dL (0.70-1.30) 02/15/21 18:16 Est GFR (MDRD) Af Amer 112 mL/min (>60) 02/15/21 18:16 Est GFR (MDRD) Non-Af 92 mL/min (>60) 02/15/21 18:16 BUN/Creatinine Ratio 18.0 RATIO (10-20) 02/15/21 18:16 Glucose 158 mg/dL (74-106) H 02/15/21 18:16 Microbiology: Microbiology 02/15/21 18:20 Nasal Secretion SARS-CoV-2 Antigen (Rapid) - Final Weight used for dosin.5 kg Estimated Creatinine Clearance: 70 Goal Trough: 15-20 mcg/mL Pharmacy Plan for Drug Dosing: Pharmacy Service will continue to monitor and adjust dosing as required. Follow-Up Labs: Trough Vancomycin Labs to be done on [date and time ordered]: 02/17/21 @5037
[2021-02-16 02:21] LABS: M R Staph aureus DNA By PCR Negative (Negative); Probe Check PASS; Specimen Processing Control PASS
[2021-02-16] MEDS: 0.9% Normal Saline 1,000 ML 75 ML IV ×2 (03:00→14:59)
[2021-02-16 04:42] LABS: Absolute Lymphocyte Count 0.54 X10^3/uL (0.83-4.51); Absolute Neutrophil Count 12.8 X10^3/uL (2.0-7.7); Basophil# 0.03 X10^3/uL; Basophil% 0.2 % (0-1); Hematocrit 34.8 % (40-54); Hemoglobin 11.1 g/dL (13.0-16.5); Lymphocyte # 0.54 X10^3/ul (0.83-4.51); Lymphocyte % 3.9 % (19-41); Mean Corp Hgb Conc 31.9 g/dL (32-36); Mean Corpuscular Hgb 31.1 pg (27.0-32.0); Mean Corpuscular Volume 97.5 fL (80-94); Mean Platelet Vol. 10.8 fl (6.2-12.0); Monocyte# 0.33 X10^3/uL; Monocyte% 2.4 % (0-10); NRBC Flagged by Analyzer 0 % (0-5); Neutrophil # 12.84 X10^3/uL (2.7-7.7); Neutrophil % 92.3 % (47-70); POSITIVE DIFFERENTIAL YES; Platelet Count 323 K/mm3 (150-450); RBC Distribution Width CV 14.1 % (11.6-14.6); RBC Distribution Width SD 50.7 fl (35.1-43.9); Red Blood Count 3.57 M/mm3 (4.6-6.2); White Blood Count 13.9 K/mm3 (4.4-11.0)
[2021-02-16 04:58] LABS: Anion Gap 7 (5-15); BUN 15 mg/dL (7-18); BUN/Creat Ratio 26.9 RATIO (10-20); Calcium,Total 8.9 mg/dL (8.5-10.1); Chloride 106 mmol/L (98-107); Creatinine, Serum 0.56 mg/dL (0.70-1.30); EST Glomerular Filtration Rate 158 mL/min (>60); Est Glom Filt Rate - Afr Amer 191 mL/min (>60); Estimated Creatinine Clearance 111.24 ml/min; Glucose 143 mg/dL (74-106); Potassium 4.2 mmol/L (3.5-5.1); Sodium Level 139 mmol/L (136-145)
[2021-02-16 05:06] LABS: Differential Indicated SCAN CRITERIA MET
--- NOTE | 2021-02-16 05:40 | EX.PCM.CONCC ---
Assessment & Plan Assessment/Plan (1) Acute hypoxemic respiratory failure: PLAN: RECOMMENDATIONS: 1. Wean supplemental oxygen to maintain saturations at or above 90%. 2. Continue empiric antimicrobials. 3. Continue scheduled bronchodilators and IV steroids. 4. Encourage incentive spirometer use and mobilize patient as tolerated. 5. Transfer patient to [facility] for further evaluation and intervention. IMPRESSIONS: 1. Acute hypoxemic respiratory failure The patient was initially admitted to the hospital with worsening dyspnea. The patient was recently diagnosed with metastatic non-small cell lung carcinoma, and is yet to be started on chemoradiation. He does have evidence of brain mets and was supposed to undergo gamma knife tomorrow through [facility]. His chest imaging study did reveal revealed a significant mediastinal tumor with left upper lobe collapse. Previously, in December, the patient underwent bronchoscopy with balloon dilation of the left mainstem and stent placement. His respiratory decompensation is likely the consequence of further tumor infiltration combined with what is likely postobstructive pneumonia. At this time, the patient is maintaining appropriate oxygen saturations on minimal supplemental O2. He has remained hemodynamically stable following IV fluid resuscitation. I did call and speak with his oncology team at [facility], who was in agreement that the patient would likely benefit from being transferred for further evaluation by interventional pulmonology and his primary oncology team, as the patient may warrant more rapid initiation of radiation therapy. In the interim, the patient will be continued on empiric antimicrobials and IV steroids. It is reasonable to continue scheduled bronchodilator therapy as well. 2. History of tobacco dependency with obstructive lung disease likely Continue scheduled bronchodilator therapy and steroids. 3. History of atrial fibrillation/flutter/heart failure with reduced ejection fraction/tachycardia induced cardiomyopathy Continue outpatient medication regimen as tolerated. 4. History of GERD/malnutrition/history of cocaine dependency Complicates care, management, recovery and prognosis. Continue supportive measures as noted above. This note was generated with Powerset dictation software. It may contain incorrect words, spelling, and punctuation that were not noted in checking the note before signing. HPI Consult Data Date of Consult: 02/16/21 HPI Narrative Reason for Consultation: Sepsis HPI Narrative: The patient is a 60-year-old male, with a history as outlined below, who presented to the emergency department on February 15 with worsening dyspnea. On EMS arrival, the patient was reportedly complaining of both abdominal pain and dyspnea. 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 The patient is currently being followed by medical oncology at [facility]. His treatment plan currently includes carboplatin/paclitaxel and pembrolizumab. He was recently evaluated by radiation oncology and was scheduled to undergo gamma knife surgery in the near future. The patient does have a [id number]-zaee smoking history. The patient's medical history is also significant for atrial flutter with RVR status post unsuccessful cardioversion in December 2020 and heart failure with reduced ejection fraction likely secondary to tachycardia induced cardiomyopathy. It should be noted that during the patient's hospitalization at [facility] in December, at the time of his lung cancer diagnosis, the patient underwent bronchoscopy which revealed near complete obstruction of the left mainstem bronchus which required balloon dilation and stent placement. The patient does admit to rather frequent use of cocaine as well. He last used 2 days ago. On presentation to the emergency department, the patient was noted to be afebrile and hemodynamically stable. He was tachypneic and hypoxemic on room air. Laboratory evaluation revealed an elevated white blood cell count to 21,000. D-dimer was elevated at 3.2. Chemistry profile was notable for a lactate of 3.4. CT head was unremarkable. CTA chest revealed a large mediastinal tumor with occlusion of the left bronchus distally and subsequent left upper lobe collapse. The patient received supplemental IV fluid hydration and was started on antimicrobials. He was subsequently transferred to the medical intensive care unit for further management. Overnight, the patient has remained hemodynamically stable and never required vasopressor initiation. I did call and personally speak with his oncology team at [facility], who indicated to me that given his radiographic findings he would likely be best served by being transferred to [facility] to be evaluated by interventional pulmonology and possibly be considered for inpatient radiation treatment. [facility] Medical History Brain cancer Lung cancer Home Medications albuterol sulfate 1 - 2 puff INHALATION Q6H PRN PRN 02/15/21 [History Last Taken Unknown] albuterol sulfate 2.5 mg INHALATION Q4H PRN PRN 02/15/21 [History Last Taken Unknown] amiodarone 200 mg PO DAILY 02/15/21 [History Last Taken Unknown] apixaban [Eliquis] 5 mg PO BID 02/15/21 [History Last Taken Unknown] aspirin 81 mg PO DAILY 02/15/21 [History Last Taken Unknown] digoxin 125 mcg PO DAILY 02/15/21 [History Last Taken Unknown] ferrous sulfate [FeroSul] 325 mg PO QODAY 02/15/21 [History Last Taken Unknown] metoprolol succinate 100 mg PO DAILY 02/15/21 [History Last Taken Unknown] mirtazapine 15 mg PO QHS 02/15/21 [History Last Taken Unknown] omeprazole 20 mg PO DAILY 02/15/21 [History Last Taken Unknown] prochlorperazine maleate 10 mg PO Q6H PRN 02/15/21 [History Last Taken Unknown] Allergy/AdvReac Type Severity Reaction Status Date / Time Penicillins Allergy Hives Verified 02/15/21 17:58 shellfish derived Allergy Hives Verified 02/15/21 17:58 Family History (Updated 02/15/21 @ 22:[address] Grover Mendez MD) Other Cancer Surgical History unable to obtain Social History (Updated 02/15/21 @ 22:[address] Grover Mendez MD) Smoking Status: Current every day smoker tobacco type: cigarettes ROS Constitutional Constitutional: Reports malaise and weakness Eyes Eyes: Denies blurry vision or change in vision ENT HEENT: Denies dizziness, dysphagia, epistaxis or headache(s) Cardiovascular Cardiovascular: Denies chest pain or dizziness Respiratory/Chest Respiratory/Chest: Reports cough and dyspnea Gastrointestinal Gastrointestinal: Denies abdominal pain, diarrhea, nausea or vomiting Genitourinary Genitourinary: Denies difficulty urinating Musculoskeletal Musculoskeletal: Denies arthralgias or back pain Integumentary Integumentary: Denies lesions, rash or skin ulcer Neurologic Neurologic: Reports confusion Psychiatric Psychiatric: Denies anxiety or depression Endocrine Endocrinology: Reports fatigue Hematologic/Lymphatic Hematologic/Lymphatic: Denies easy bleeding or easy bruising Physical Exam Const alert General Appearance: cooperative Orientation / Consciousness: lethargic HEENT normocephalic and head/scalp atraumatic Teeth and Gingiva: poor dentition Eyes PERRL and EOMs intact bilaterally Neck supple General: trachea midline Chest inspection of chest normal Resp Resp Narrative: Diminished air movement most pronounced in the left mid and upper lung gomez. Cardio regular rate and regular rhythm GI normal to inspection, nondistended, normoactive bowel sounds Extremity no clubbing, cyanosis or edema Skin no rashes or lesions noted Neuro moves all extremities and no focal motor deficits Psych Mood & Affect: flat affect Lab / Micro Data Result Diagrams: 02/16/21 04:32 02/16/21 04:32 Labs: Laboratory Results - last 24 hr 02/15/21 18:16: WBC 21.1 H, RBC 4.42 L, Hgb 13.9, Hct 42.4, MCV 95.9 H, MCH 31.4, MCHC 32.8, RDW Std Deviation 49.6 H, RDW Coeff of Nafisa 13.9, Plt Count 395, MPV 11.3, Immature Gran % (Auto) 1.700 H, Neut % (Auto) 81.7 H, Lymph % (Auto) 5.6 L, Wallace % (Auto) 10.7 H, Eos % (Auto) 0.0, Baso % (Auto) 0.3, Absolute Neuts (auto) 17.2 H, Absolute Lymphs (auto) 1.18, Nucleated RBC % 0, Differential Comment SEE COMMENT, Diff Path Review May bhargavi, Platelet Estimate ADEQUATE, RBC Morphology N CHROM, Anisocytosis 1+, Macrocytosis 1+, Ovalocytes RARE 02/15/21 18:16: D-Dimer Quant (PE/DVT) 3.23 H* 02/15/21 18:16: Sodium 136, Potassium 4.2, Chloride 100, Carbon Dioxide 26.0, Anion Gap 10, BUN 16, Creatinine 0.89, Estim Creat Clear Calc 70.36, Est GFR (MDRD) Af Amer 112, Est GFR (MDRD) Non-Af 92, BUN/Creatinine Ratio 18.0, Glucose 158 H, Calcium 10.2 H, Troponin I High Sens 31 02/15/21 18:16: B-Natriuretic Peptide 98.0 02/15/21 18:16: Lactic Acid 3.4 H* 02/15/21 22:50: Lactic Acid 2.5 H* 02/16/21 00:30: MRSA (PCR) Negative 02/16/21 04:32: WBC 13.9 H, RBC 3.57 L, Hgb 11.1 L, Hct 34.8 L, MCV 97.5 H, MCH 31.1, MCHC 31.9 L, RDW Std Deviation 50.7 H, RDW Coeff of Nafisa 14.1, Plt Count 323, MPV 10.8, Immature Gran % (Auto) 1.200 H, Neut % (Auto) 92.3 H, Lymph % (Auto) 3.9 L, Wallace % (Auto) 2.4, Eos % (Auto) 0.0, Baso % (Auto) 0.2, Absolute Neuts (auto) 12.8 H, Absolute Lymphs (auto) 0.54 L, Nucleated RBC % 0 02/16/21 04:32: Sodium 139, Potassium 4.2, Chloride 106, Carbon Dioxide 26.0, Anion Gap 7, BUN 15, Creatinine 0.56 L, Estim Creat Clear Calc 111.24, Est GFR (MDRD) Af Amer 191, Est GFR (MDRD) Non-Af 158, BUN/Creatinine Ratio 26.9 H, Glucose 143 H, Calcium 8.9 Micro: Microbiology 02/15/21 18:20 Nasal Secretion SARS-CoV-2 Antigen (Rapid) - Final Radiology Impression Chest X-Ray 02/15/21 19:05 IMPRESSION: 9.3 cm left perihilar lung mass with likely collapse of the left upper lobe. Electronically Signed: David Flores MD at 19:42 EDT Tel , Service support , Chest CTA 02/15/21 19:29 IMPRESSION: 1. No acute pulmonary embolism. 2. Left upper lobe collapse and postobstructive pneumonia. Possibly underlying tumor involvement. 3. Severe disease progression. Massive diffusely invasive mediastinal tumor. 4. Increasing left lower lobe superior segment tumor. 5. New right upper lung metastasis. 6. Left upper arm soft tissue/humerus metaphysis. 7. Severe emphysema. Electronically Signed: Donaldo Mckeon MD at 20:51 EDT Tel , Service support , Brain CT 02/15/21 21:04 IMPRESSION: No acute intracranial abnormality. Specifically, no evidence of brain metastases. If high concern for metastases, recommend either MRI brain with contrast or repeat CT head with contrast. Electronically Signed: David Flores MD at 21:43 EDT Tel , Service support , Charges/Coding Visit Charges Inpatient E&M: 15757 Init Hosp L3
[2021-02-16 06:40] LABS: Allen Test Positive; Base Excess -1 mmol/L (-2 to +2); Bicarbonate 23.4 mmol/L (22-26); Blood Gas Specimen Type ART; O2 Delivery Device Cannula; PO2 78 mmHG (75-100); SITE R Radial; SO2 96 % (95-99); Total Carbon Dioxide 25 mmol/L; pCO2 35.5 mmHg (35-45); pH 7.43 (7.35-7.45)
[2021-02-16] MEDS: Ipratropium/Albuterol Sulfate 3 ML AMPUL.NEB INHALATION ×4 (07:06→18:55)
--- NOTE | 2021-02-16 09:39 | CASEMGMT ---
Patient In [facility] for Insurance Mycare/Crsc: [facility], [facility], [facility], [facility], [facility], . Jeremiah Beatty RNCM
[2021-02-16] MEDS: Pantoprazole Sodium 20 MG Tablet PO (10:35)
[2021-02-16] MEDS: Digoxin 125 MCG Tablet PO (10:35)
[2021-02-16] MEDS: Ferrous Sulfate 325 MG Tablet PO (10:35)
[2021-02-16] MEDS: Amiodarone 200 MG Tablet PO (10:35)
--- NOTE | 2021-02-16 11:12 | EKG12_ITS ---
Test Reason : RHYTHM CHANGE Blood Pressure : / mmHG Vent. Rate : 138 BPM Atrial Rate : 182 BPM P-R Int : 000 ms QRS Dur : 092 ms QT Int : 310 ms P-R-T Axes : 000 -08 252 degrees QTc Int : 469 ms Atrial fibrillation with premature ventricular or aberrantly conducted complexes Anterior infarct (cited on or before 15-FEB-2021) Abnormal ECG Confirmed by FRANCK KIMBALL, CARLOS ENRIQUE ([id number]), book editor ALENA PRADO ([id number]) on 02/24/2021 10:15:42 AM Referred By: EMILY Confirmed By:CARLOS ENRIQUE JUÁREZ MD
--- NOTE | 2021-02-16 11:20 | EKG12_ITS ---
Test Reason : RHYTHM CHANGE Blood Pressure : / mmHG Vent. Rate : 119 BPM Atrial Rate : 271 BPM P-R Int : 000 ms QRS Dur : 090 ms QT Int : 392 ms P-R-T Axes : 000 -12 171 degrees QTc Int : 551 ms Atrial flutter with variable A-V block with premature ventricular or aberrantly conducted complexes ST & T wave abnormality, consider inferior ischemia Abnormal ECG When compared with ECG of 16-FEB-2021 13:55, MANUAL COMPARISON REQUIRED, DATA IS UNCONFIRMED Confirmed by FRANCK KIMBALL, CARLOS ENRIQUE ([id number]), dictionary editor ALENA PRADO ([id number]) on 02/24/2021 10:10:38 AM Referred By: NATIVIDAD Confirmed By:CARLOS ENRIQUE JUÁREZ MD
--- NOTE | 2021-02-16 12:06 | PN.HOSP_ITS ---
Subjective Subjective Short of breath. Objective Data Objective Data Vital Signs: Vital Signs Temp Pulse Resp BP Pulse Ox 36.9 C 140 H 30 H 144/83 H 96 02/16/21 08:00 02/16/21 11:28 02/16/21 11:00 02/16/21 11:00 02/16/21 11:00 Oxygen Flow Rate (L/min) 2 Oxygen Delivery Method Room Air Weight: 57.5 kg Body Mass Index (BMI) 18.7 Intake & Output: Intake and Output for Last 24 Hours 02/14/21 02/15/21 02/16/21 23:59 23:59 23:59 Intake Total 1035 / 1035 2730 / 2730 Balance 1035 / 1035 2730 / 2730 Medical Nutrition Assessment Dietitian: Malnutrition Criteria Met Start: 02/16/21 08:57 Freq: Status: Active Protocol: Document 02/16/21 11:30 RMA (Rec: 02/16/21 11:30 RMA [id number]) Nutrition Malnutrition Evidence of Malnutrition Exists Yes Malnutrition (severe): Acute Illness/Injury,Chronic Evidenced By Suboptimal Energy Intake ( Severe),Weight Loss (Severe), Physical Changes (Moderate) Clinical Problem Chronic Disease or Condition Related Malnutrition Etiology Severe protein/calorie malnutrition in the context of acute on chronic disease related to inadequate oral intake and increased energy expenditure/needs Signs/Symptoms as evidenced by ~10% wt loss x past 2-3 months, PO meeting less than 50% estimated nutrition needs, muscle/fat wasting +nutrition focused physical exam and BMI 18.7 Status Active Problem Recommendation Dietitian Recommendations/Changes Will liberalize diet to Regular and encourage intake at meals. Will add magic cup BID w/ lunch and dinner. Will add ensure compact w/ breakfast. Additional ONS as pt willing. May need to consider TF support if PO remains poor and weight continues to decline. Lab / Micro Data Result Diagrams: 02/16/21 04:32 02/16/21 04:32 Labs: Laboratory Results - last 24 hr 02/15/21 18:16: WBC 21.1 H, RBC 4.42 L, Hgb 13.9, Hct 42.4, MCV 95.9 H, MCH 31.4, MCHC 32.8, RDW Std Deviation 49.6 H, RDW Coeff of Nafisa 13.9, Plt Count 395, MPV 11.3, Immature Gran % (Auto) 1.700 H, Neut % (Auto) 81.7 H, Lymph % (Auto) 5.6 L, [place] % (Auto) 10.7 H, Eos % (Auto) 0.0, Baso % (Auto) 0.3, Absolute Neuts (auto) 17.2 H, Absolute Lymphs (auto) 1.18, Nucleated RBC % 0, Differential Comment SEE COMMENT, Diff Path Review May foll, Platelet Estimate ADEQUATE, RBC Morphology N CHROM, Anisocytosis 1+, Macrocytosis 1+, Ovalocytes RARE 02/15/21 18:16: D-Dimer Quant (PE/DVT) 3.23 H* 02/15/21 18:16: Sodium 136, Potassium 4.2, Chloride 100, Carbon Dioxide 26.0, Anion Gap 10, BUN 16, Creatinine 0.89, Estim Creat Clear Calc 70.36, Est GFR (MDRD) Af Amer 112, Est GFR (MDRD) Non-Af 92, BUN/Creatinine Ratio 18.0, Glucose 158 H, Calcium 10.2 H, Troponin I High Sens 31 02/15/21 18:16: B-Natriuretic Peptide 98.0 02/15/21 18:16: Lactic Acid 3.4 H* 02/15/21 22:50: Lactic Acid 2.5 H* 02/16/21 00:30: MRSA (PCR) Negative 02/16/21 04:32: WBC 13.9 H, RBC 3.57 L, Hgb 11.1 L, Hct 34.8 L, MCV 97.5 H, MCH 31.1, MCHC 31.9 L, RDW Std Deviation 50.7 H, RDW Coeff of Nafisa 14.1, Plt Count 323, MPV 10.8, Immature Gran % (Auto) 1.200 H, Neut % (Auto) 92.3 H, Lymph % (Auto) 3.9 L, [place] % (Auto) 2.4, Eos % (Auto) 0.0, Baso % (Auto) 0.2, Absolute Neuts (auto) 12.8 H, Absolute Lymphs (auto) 0.54 L, Nucleated RBC % 0 02/16/21 04:32: Sodium 139, Potassium 4.2, Chloride 106, Carbon Dioxide 26.0, Anion Gap 7, BUN 15, Creatinine 0.56 L, Estim Creat Clear Calc 111.24, Est GFR (MDRD) Af Amer 191, Est GFR (MDRD) Non-Af 158, BUN/Creatinine Ratio 26.9 H, Glucose 143 H, Calcium 8.9 Micro: Microbiology 02/15/21 18:20 Nasal Secretion SARS-CoV-2 Antigen (Rapid) - Final ABG Data ABG results: ABG 02/16/21 06:37 Specimen Type ART Sample Site R Radial pH 7.43 Bicarbonate Actual 23.4 Total CO2 25 Base Excess -1 O2 Saturation 96 ABG pCO2 35.5 ABG pO2 78 David Test Positive O2 Delivery Device Cannula Liter Flow 4.0 Radiography Diagnostic Testing: Radiology Impression Chest X-Ray 02/15/21 19:05 IMPRESSION: 9.3 cm left perihilar lung mass with likely collapse of the left upper lobe. Electronically Signed: David Flores MD at 19:42 EDT Tel , Service support , Chest CTA 02/15/21 19:29 IMPRESSION: 1. No acute pulmonary embolism. 2. Left upper lobe collapse and postobstructive pneumonia. Possibly underlying tumor involvement. 3. Severe disease progression. Massive diffusely invasive mediastinal tumor. 4. Increasing left lower lobe superior segment tumor. 5. New right upper lung metastasis. 6. Left upper arm soft tissue/humerus metaphysis. 7. Severe emphysema. Electronically Signed: Donaldo Mckeon MD at 20:51 EDT Tel , Service support , Brain CT 02/15/21 21:04 IMPRESSION: No acute intracranial abnormality. Specifically, no evidence of brain metastases. If high concern for metastases, recommend either MRI brain with contrast or repeat CT head with contrast. Electronically Signed: David Flores MD at 21:43 EDT Tel , Service support , Physical Exam Const Constitutional Narrative: listless. cachectic. afebrile. minimal eye contact during encounter. Resp normal respiratory effort, no retractions and no use of accessory muscles Cardio regular rate, regular rhythm, S1 normal heart sound and S2 normal heart sound GI normal to inspection, nondistended, normoactive bowel sounds, soft to palpation, non-tender, non-distended and hepatosplenomegaly Extremity normal to inspection Assessment & Plan Assessment/Plan (1) Acute hypoxemic respiratory failure: (2) Pneumonia: QUALIFIERS: Pneumonia type: due to unspecified organism L aterality: left Lung location: upper lobe of lung Qualified Code(s): J18.9 - Pneumonia, unspecified organism (3) Severe protein-calorie malnutrition: (4) Septic shock: PLAN: 1. Acute hypoxic respiratory failure * 2/2 lung mass and post obstructive pneumonia with COPD * DW Dr. Sheffield who recommends transfer to [facility] for interventional pulmonology eval and oncology eval. * 02/16: I spoke with [facility] transfer line. They are not accepting outside ICU transfers at this time (pt currently in ICU). They told me if pt is stable on medical floor for 24h, then to call back. 2. septic shock * 2/2 pneumonia * resolved with IVF. No pressors needed. 3. suspected gram negative pneumonia * on Aztreonam, LVQ, vanc * check SCx * pulm toilet 4. Lung cancer * f/u with med and rad onc 5. severe protein calorie malnutrition * regular diet and supplement * nutrition consult 6. VTE prophylaxis: on enoxaparin. Normally on apixaban. Unclear why. Charges/Coding Procedures Hospitalists Procedures: Other Procedure - See Report (Non billable rounding as pt admitted after midnight. )
[2021-02-16] MEDS: Metoprolol(XL)Succ 100 MG Tablet PO (12:30)
[2021-02-16 13:03] LABS: Amphetamine Urine VISTA NEGATIVE (<1000 ng/mL); Barbiturate Urine VISTA NEGATIVE (< 200 ng/mL); Benzodiazepine Urine VISTA NEGATIVE (< 200 ng/mL); Cocaine Urine VISTA POSITIVE (< 300 ng/mL); Ecstacy Urine VISTA NEGATIVE (< 500 ng/mL); Methadone Urine VISTA NEGATIVE (< 300 ng/mL); PCP Urine VISTA NEGATIVE (< 25 ng/mL); THC Urine VISTA POSITIVE (< 50 ng/mL); Vista UDS pH Range 5
--- NOTE | 2021-02-16 14:00 | EKG12_ITS ---
Test Reason : RHYTHM CHANGE Blood Pressure : / mmHG Vent. Rate : 126 BPM Atrial Rate : 300 BPM P-R Int : 000 ms QRS Dur : 102 ms QT Int : 346 ms P-R-T Axes : 000 -41 171 degrees QTc Int : 501 ms Atrial flutter with variable A-V block Left axis deviation ST & T wave abnormality, consider lateral ischemia Abnormal ECG When compared with ECG of 16-FEB-2021 11:12, MANUAL COMPARISON REQUIRED, DATA IS UNCONFIRMED Confirmed by FRANCK KIMBALL, CARLOS ENRIQUE ([id number]), continuity editor ALENA PRADO ([id number]) on 02/24/2021 10:13:13 AM Referred By: EMILY Confirmed By:CARLOS ENRIQUE JUÁREZ MD
[2021-02-16 15:00] LABS: Pathologist Review Reviewed
--- NOTE | 2021-02-16 17:20 | NURSING ---
Pt sitting up in bed eating dinner. denies needs at this time.
[2021-02-16] MEDS: MELATONIN 3 MG TABLET PO (20:11)
[2021-02-16] MEDS: Mirtazapine 15 MG Tablet PO (20:11)
[2021-02-16] MEDS: levoFLOXacin IV 750 MG/150 ML BAG 100 MG IV (21:01)
--- NOTE | 2021-02-16 21:14 | NURSING ---
pulse ox while sleeping drop to 87% on ra. Pt placed back on at 2lnc
[2021-02-17] VITALS (21 sets, daily range): BP systolic 127–156; BP diastolic 67–91; PULSE 59–96; RESP 19–40; TEMP 36.6–36.9; O2SAT 90–96
[2021-02-17] MEDS: 0.9% Normal Saline 1,000 ML 75 ML IV ×2 (04:44→17:26)
--- NOTE | 2021-02-17 05:34 | PN.CC_ITS ---
Assessment & Plan Assessment/Plan (1) Acute hypoxemic respiratory failure: PLAN: RECOMMENDATIONS: 1. Wean supplemental oxygen to maintain saturations at or above 90%. 2. Continue empiric antimicrobials. 3. Continue scheduled bronchodilators and IV steroids. 4. Encourage incentive spirometer use and mobilize patient as tolerated. 5. Transfer patient to [facility] for further evaluation and intervention. IMPRESSIONS: 1. Acute hypoxemic respiratory failure The patient was initially admitted to the hospital with worsening dyspnea. The patient was recently diagnosed with metastatic non-small cell lung carcinoma, and is yet to be started on chemoradiation. He does have evidence of brain mets and was supposed to undergo gamma knife today through [facility]. His chest imaging study did reveal revealed a significant mediastinal tumor with left upper lobe collapse. Previously, in December, the patient underwent bronchoscopy with balloon dilation of the left mainstem and stent placement. His respiratory decompensation is likely the consequence of further tumor infiltration combined with what is likely postobstructive pneumonia. At this time, the patient is maintaining appropriate oxygen saturations on minimal supplemental O2. He has remained hemodynamically stable following IV fluid resuscitation. I did call and speak with his oncology team at [facility], who was in agreement that the patient would likely benefit from being transferred for further evaluation by interventional pulmonology and his primary oncology team, as the patient may warrant more rapid initiation of radiation therapy. In the interim, the patient will be continued on empiric antimicrobials and IV steroids. It is reasonable to continue scheduled bronchodilator therapy as well. 2. History of tobacco dependency with obstructive lung disease likely Continue scheduled bronchodilator therapy and steroids. 3. History of atrial fibrillation/flutter/heart failure with reduced ejection fraction/tachycardia induced cardiomyopathy Continue outpatient medication regimen as tolerated. 4. History of GERD/malnutrition/history of cocaine dependency Complicates care, management, recovery and prognosis. Continue supportive measures as noted above. This note was generated with [employer]apor[employer] dictation software. It may contain incorrect words, spelling, and punctuation that were not noted in checking the note before signing. Subjective Subjective The patient was seen and examined at the bedside this morning. Events from the last 24 hours have been reviewed. The patient is currently afebrile, hemodynamically stable and maintaining appropriate oxygen saturations on 2 L/min via nasal cannula. No issues were noted by the overnight nursing staff. The patient remains on antimicrobials, scheduled bronchodilators and IV steroids. He is still awaiting transfer to [facility] for additional work-up and intervention. Objective Data Objective Data The patient's most recent lab work, culture data and imaging studies have all been personally reviewed. Strep and urine Legionella antigens were negative. Rapid coronavirus antigen testing was negative. Blood cultures are pending. Vital Signs: Vital Signs Temp Pulse Resp BP Pulse Ox 97.9 F 62 24 H 138/85 H 96 02/17/21 02:38 02/17/21 03:24 02/17/21 02:38 02/17/21 02:38 02/17/21 02:38 Oxygen Flow Rate (L/min) 2 Oxygen Delivery Method Nasal Cannula Weight: 59.1 kg Body Mass Index (BMI) 18.7 Intake & Output: Intake and Output for Last 24 Hours 02/15/21 02/16/21 02/17/21 23:59 23:59 23:59 Intake Total 1035 / 1035 4810.50 / 4810.50 1481.75 / 1481.75 Output Total 1000 / 1000 200 / 200 Balance 1035 / 1035 3810.50 / 3810.50 1281.75 / 1281.75 Medical Nutrition Assessment Dietitian: Malnutrition Criteria Met Start: 02/16/21 08:57 Freq: Status: Active Protocol: Document 02/16/21 11:30 RMA (Rec: 02/16/21 11:30 RMA [id number]) Nutrition Malnutrition Evidence of Malnutrition Exists Yes Malnutrition (severe): Acute Illness/Injury,Chronic Evidenced By Suboptimal Energy Intake ( Severe),Weight Loss (Severe), Physical Changes (Moderate) Clinical Problem Chronic Disease or Condition Related Malnutrition Etiology Severe protein/calorie malnutrition in the context of acute on chronic disease related to inadequate oral intake and increased energy expenditure/needs Signs/Symptoms as evidenced by ~10% wt loss x past 2-3 months, PO meeting less than 50% estimated nutrition needs, muscle/fat wasting +nutrition focused physical exam and BMI 18.7 Status Active Problem Recommendation Dietitian Recommendations/Changes Will liberalize diet to Regular and encourage intake at meals. Will add magic cup BID w/ lunch and dinner. Will add ensure compact w/ breakfast. Additional ONS as pt willing. May need to consider TF support if PO remains poor and weight continues to decline. Lab / Micro Data Attestation: I reviewed the patient's lab results. Result Diagrams: 02/16/21 04:32 02/16/21 04:32 Labs: Laboratory Results - last 24 hr 02/15/21 18:16: Diff Path Review Reviewed 02/16/21 12:40: Urine Opiates Screen POSITIVE H, Urine Methadone Screen NEGATIVE, Ur Barbiturates Screen NEGATIVE, Ur Phencyclidine Scrn NEGATIVE, Ur Amphetamines Screen NEGATIVE, U Methamphetamin-MDMA NEGATIVE, U Benzodiazepines Scrn NEGATIVE, Urine Cocaine Screen POSITIVE H, U Cannabinoids Screen POSITIVE H , Ur Drug Screen Comment Micro: Microbiology 02/16/21 12:40 Urine, Random Legionella Antigen - Final 02/16/21 12:40 Urine, Random Streptococcus pneumoniae Antigen (M - Final 02/15/21 18:20 Nasal Secretion SARS-CoV-2 Antigen (Rapid) - Final ABG Data ABG results: ABG 02/16/21 06:37 Specimen Type ART Sample Site R Radial pH 7.43 Bicarbonate Actual 23.4 Total CO2 25 Base Excess -1 O2 Saturation 96 ABG pCO2 35.5 ABG pO2 78 David Test Positive O2 Delivery Device Cannula Liter Flow 4.0 Physical Exam Const alert and no apparent distress General Appearance: cooperative HEENT normocephalic and head/scalp atraumatic Teeth and Gingiva: poor dentition Eyes PERRL, EOMs intact bilaterally and conjunctivae normal Neck supple General: trachea midline Chest inspection of chest normal Resp no use of accessory muscles Resp Narrative: Diminished air movement most pronounced in the left mid and upper lung gomez. Effort and Inspection: able to speak in complete sentences Cardio regular rate and regular rhythm GI normal to inspection, nondistended, normoactive bowel sounds Extremity no clubbing, cyanosis or edema Skin no rashes or lesions noted Neuro moves all extremities and no focal motor deficits Psych Mood & Affect: flat affect Charges/Coding Visit Charges Inpatient E&M: 65986 Subs Hosp L2
[2021-02-17] MEDS: Ipratropium/Albuterol Sulfate 3 ML AMPUL.NEB INHALATION ×5 (06:47→22:59)
[2021-02-17] MEDS: Amiodarone 200 MG Tablet PO (08:47)
[2021-02-17] MEDS: Digoxin 125 MCG Tablet PO (08:48)
[2021-02-17] MEDS: Enoxaparin 60 MG/0.6 ML Syringe SC ×2 (08:50→19:47)
[2021-02-17] MEDS: Pantoprazole Sodium 20 MG Tablet PO (08:51)
[2021-02-17] MEDS: Metoprolol(XL)Succ 100 MG Tablet PO (08:51)
--- NOTE | 2021-02-17 12:30 | PN.HOSP_ITS ---
Subjective Subjective Breathing better. Objective Data Objective Data Vital Signs: Vital Signs Temp Pulse Resp BP Pulse Ox 36.8 C 67 22 H 139/87 H 94 02/17/21 08:38 02/17/21 11:28 02/17/21 11:28 02/17/21 08:51 02/17/21 08:38 Oxygen Flow Rate (L/min) 2 Oxygen Delivery Method Nasal Cannula Weight: 59.1 kg Body Mass Index (BMI) 18.7 Intake & Output: Intake and Output for Last 24 Hours 02/15/21 02/16/21 02/17/21 23:59 23:59 23:59 Intake Total 1035 / 1035 4810.50 / 4810.50 1481.75 / 1481.75 Output Total 1000 / 1000 200 / 200 Balance 1035 / 1035 3810.50 / 3810.50 1281.75 / 1281.75 Medical Nutrition Assessment Dietitian: Malnutrition Criteria Met Start: 02/16/21 08:57 Freq: Status: Active Protocol: Document 02/16/21 11:30 RMA (Rec: 02/16/21 11:30 RMA [id number]) Nutrition Malnutrition Evidence of Malnutrition Exists Yes Malnutrition (severe): Acute Illness/Injury,Chronic Evidenced By Suboptimal Energy Intake ( Severe),Weight Loss (Severe), Physical Changes (Moderate) Clinical Problem Chronic Disease or Condition Related Malnutrition Etiology Severe protein/calorie malnutrition in the context of acute on chronic disease related to inadequate oral intake and increased energy expenditure/needs Signs/Symptoms as evidenced by ~10% wt loss x past 2-3 months, PO meeting less than 50% estimated nutrition needs, muscle/fat wasting +nutrition focused physical exam and BMI 18.7 Status Active Problem Recommendation Dietitian Recommendations/Changes Will liberalize diet to Regular and encourage intake at meals. Will add magic cup BID w/ lunch and dinner. Will add ensure compact w/ breakfast. Additional ONS as pt willing. May need to consider TF support if PO remains poor and weight continues to decline. Lab / Micro Data Result Diagrams: 02/16/21 04:32 02/16/21 04:32 Labs: Laboratory Results - last 24 hr 02/15/21 18:16: Diff Path Review Reviewed 02/16/21 12:40: Urine Opiates Screen POSITIVE H, Urine Methadone Screen NEGATIVE, Ur Barbiturates Screen NEGATIVE, Ur Phencyclidine Scrn NEGATIVE, Ur Amphetamines Screen NEGATIVE, U Methamphetamin-MDMA NEGATIVE, U Benzodiazepines Scrn NEGATIVE, Urine Cocaine Screen POSITIVE H, U Cannabinoids Screen POSITIVE H , Ur Drug Screen Comment Micro: Microbiology 02/16/21 12:40 Urine, Random Legionella Antigen - Final 02/16/21 12:40 Urine, Random Streptococcus pneumoniae Antigen (M - Final 02/15/21 18:20 Nasal Secretion SARS-CoV-2 Antigen (Rapid) - Final Physical Exam Const alert Resp normal respiratory effort, no retractions and no use of accessory muscles Resp Narrative: coarse breath sounds bilaterally. Cardio regular rate, regular rhythm, S1 normal heart sound and S2 normal heart sound GI normal to inspection, nondistended, normoactive bowel sounds, soft to palpation, non-tender and non-distended Extremity normal to inspection Assessment & Plan Assessment/Plan (1) Acute hypoxemic respiratory failure: (2) Pneumonia: QUALIFIERS: Pneumonia type: due to unspecified organism Laterality: left Lung location: upper lobe of lung Qualified Code(s): J18.9 - Pneumonia, unspecified organism (3) Severe protein-calorie malnutrition: (4) Septic shock: PLAN: 1. Acute hypoxic respiratory failure * 2/2 lung mass and post obstructive pneumonia with COPD * DW Dr. Sheffield who recommends transfer to [facility] for interventional pulmonology eval and oncology eval. * 02/16: I spoke with [facility] transfer line. They are not accepting outside ICU transfers at this time (pt currently in ICU). They told me if pt is stable on medical floor for 24h, then to call back. 2. septic shock * 2/2 pneumonia * resolved with IVF. No pressors needed. 3. suspected gram negative pneumonia * on Aztreonam, LVQ, vanc * check SCx * pulm toilet 4. Lung cancer * f/u with med and rad onc 5. severe protein calorie malnutrition * regular diet and supplement * nutrition consult 6. VTE prophylaxis: on enoxaparin. Normally on apixaban. Unclear why. Charges/Coding Visit Charges Inpatient E&M: 15382 Subs Hosp L2
--- NOTE | 2021-02-17 13:40 | CASEMGMT ---
RN CM Assessment Introduced role of RN CM to patient. Patient is alert, oriented and able to participate in RN CM Assessment. Care providers, pharmacy, and demographics verified. Admit Dx: Sepsis s/t postobstructive PNA Re-Admit: No Barriers/Issues: Patient lives in a basement (does not know the people of the basement he lives in), Has 10 steps through one door and 3-4 steps through another door to enter his basement. Patient does not have a good support system- Has a dtr- not really his dtr but calls him dad that lives in [place] and has a dtr that lives in [facility]. Does not believe he can live with either of them. States I would not put that on him when asked if his brother Atif IBARRA could assist with his care needs. Patient has Chemo on hold and was suppose to have the Gamma knife today at [facility]. Patient states that he will have to find another place to live as for the past 2 weeks has deconditioned and become chair bound with only one shower. His friend has been helping him recently and driving him around. His cell phone that is listed on demographics was left with his friend whom he cannot get in touch with. He has another cell phone at bedside that his kids got him so he can face time but is unsure of that number. States all his contacts are in his other phone and his [facility] worker Sofia is in that phone- she was trying to assist him with obtaining a motorized scooter (would take 6-8 weeks). Patient states he was supposed to have a shower chair delivered but he ended up in the hospital so that has not been delivered and in the works. Patient states he needs to get his certificate so that [employer] can assist with alternative housing. 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 States on SSI/SDI. PCP: Salma Podlogar, [employer] Specialists: Dr Coley Onc at [facility] Preferred [facility]acy: [facility] Rx Benefit: Yes LNOK: Brother Bladimir Workman LW/HPOA: None. Patient states would like to complete on this admission. Will notify executive secretary social welfare for completion. Living Arrangements: See above Barrier/Issues ADL?s: Was Independent with ambulation and ADLs prior to deconditioning over the past couple weeks. Transportation: Friend has been transporting him and assisting. Patient has [employer] which can assist with some transportation needs for medical purposes. DME: [employer]. Shower Chair-Pending deliver. [employer] Worker- trying to assist with getting patient a motorized scooter. HHC: None SNF: None Goal: To transfer to [facility] to receive further care. Per MOD Dr Tolentino note: 02/16: I spoke with [facility] transfer line. They are not accepting outside ICU transfers at this time (pt currently in ICU). They told me if pt is stable on medical floor for 24h, then to call back. .- Downgraded to PCU. DC PLAN: Transfer to [facility]. Patient currently on Oxygen. Jeremiah Beatty RNCM
[2021-02-17 14:03] LABS: Vancomycin, Trough Level 8.6 ug/mL (5.0-15.0)
--- NOTE | 2021-02-17 14:34 | PCM.RX.CS ---
Consult Pharmacy has been consulted to manage selected antiobiotic: Vancomycin Type of Consult: Follow-up Prior Doses of Antibiotics Received/Current Regimen: currently on vanc 750mg IV q12h Labs: Sodium 139 mmol/L (136-145) 02/16/21 04:32 Potassium 4.2 mmol/L (3.5-5.1) 02/16/21 04:32 Chloride 106 mmol/L (98-107) 02/16/21 04:32 Carbon Dioxide 26.0 mmol/L (21.0-32.0) 02/16/21 04:32 Anion Gap 7 (5-15) 02/16/21 04:32 BUN 15 mg/dL (7-18) 02/16/21 04:32 Creatinine 0.56 mg/dL (0.70-1.30) L 02/16/21 04:32 Est GFR (MDRD) Af Amer 191 mL/min (>60) 02/16/21 04:32 Est GFR (MDRD) Non-Af 158 mL/min (>60) 02/16/21 04:32 BUN/Creatinine Ratio 26.9 RATIO (10-20) H 02/16/21 04:32 Glucose 143 mg/dL (74-106) H 02/16/21 04:32 Vancomycin Trough 8.6 ug/mL (5.0-15.0) 02/17/21 13:25 Microbiology: Microbiology 02/16/21 12:40 Urine, Random Legionella Antigen - Final 02/16/21 12:40 Urine, Random Streptococcus pneumoniae Antigen (M - Final 02/15/21 18:20 Nasal Secretion SARS-CoV-2 Antigen (Rapid) - Final Weight used for dosin.1 kg Estimated Creatinine Clearance: 111ml/min Goal Trough: 15-20 mcg/mL Pharmacy Plan for Drug Dosing: The vanc trough level drawn at 13:25 today (drawn 12 hours after the previous dose) came back as 8.6. This is below goal so will increase dose to 1000mg IV q12h. Will repeat the trough before the 4th new dose. Pharmacy Service will continue to monitor and adjust dosing as required. Follow-Up Labs: Trough Vancomycin Labs to be done on [date and time ordered]: 02/19/21 0500
[2021-02-17] MEDS: Vancomycin IV 1,000 MG/200 ML BAG 200 MG IV (17:44)
--- NOTE | 2021-02-17 19:40 | NURSING ---
pt c/o back and chest pain. resp in 40s. po 90 to 88% on 2lnc. 02 increase to 4lnc. misael babb presidential helicopter crew chief notified morphine ordered
[2021-02-17] MEDS: Mirtazapine 15 MG Tablet PO (19:48)
[2021-02-17] MEDS: MELATONIN 3 MG TABLET PO (19:48)
[2021-02-17] MEDS: Morphine 2 MG/ML Syringe IV ×2 (20:24→23:20)
--- NOTE | 2021-02-17 22:57 | NURSING ---
po drop to 86% on 4lnc. 02 increase to 6lnc. rep in to evaluate. resp now back in 30s.
--- NOTE | 2021-02-17 23:56 | NURSING ---
pt on vent mask at 40% pt tolerating well. po 93%
[2021-02-18] VITALS (37 sets, daily range): BP systolic 114–169; BP diastolic 57–112; PULSE 61–133; RESP 11–34; TEMP 35.9–36.8; O2SAT 89–97
--- NOTE | 2021-02-18 00:39 | NURSING ---
pt now requiring 02 at 50%. resp in 30s. misael babb ice grinder notified. abgs. resp notified
--- NOTE | 2021-02-18 00:51 | NURSING ---
pt in afib hr 113-130. ekg done. dr castillo notified
--- NOTE | 2021-02-18 00:57 | RAD_ITS ---
STUDY: X-RAY CHEST REASON FOR EXAM: Male, 60 years old. SOB TECHNIQUE: Single AP portable view of the chest. COMPARISON: 02/15/2021. FINDINGS: There is near complete opacification of the left lung field with previously seen left perihilar mass being obscured. There is a right mid lower lung field interstitial density most compatible with pneumonitis. Possible left-sided pleural effusion. There is right upper lobe nodule measuring 1.3 cm, unchanged. Normal size heart. Normal mediastinum and jamil. Normal visualized pulmonary arteries. Normal visualized aortic arch and descending thoracic aorta. Normal visualized thoracic spine. Normal visualized ribs, clavicles, and shoulders. There is no demonstrated abnormality of the visualized soft tissue structures of the upper abdomen. RAD/Chest 1 View (Portable) IMPRESSION: Worsening opacity within the left lung field with now near complete opacification which may indicate combination of pleural effusion, atelectasis or infiltrate. The previously seen left perihilar mass not visualized and likely obscured. Possible right mid lower lobe pneumonia. Unchanged right mid upper lung field nodule. Electronically Signed: Staci Sun MD at 2:04 EDT , Service support ,
--- NOTE | 2021-02-18 00:59 | PN.HOSP_ITS ---
Hospitalist Note Called this patient developed A. fib with RVR. He is also on a Ventimask at 40% with worsening respiratory status. He has had issues with RVR previously during his hospital course. He is currently waiting on a bed at [facility] to have radiation with regards to his cancer. For his A. fib I will give him Cardizem 20 mg x 1 dose to slow his heart rate down. He is already on amiodarone 200 mg daily. For his respiratory issues I will get a chest x-ray, ABG is pending, and place him on BiPAP at 12/6 continuous at this time.
[2021-02-18 01:01] LABS: Allen Test Negative; Base Excess -2 mmol/L (-2 to +2); Bicarbonate 22.1 mmol/L (22-26); Blood Gas Specimen Type ART; FI02 50; O2 Delivery Device Venti Mask; PO2 63 mmHG (75-100); SITE R Radial; SO2 93 % (95-99); Total Carbon Dioxide 23 mmol/L; pCO2 33.1 mmHg (35-45); pH 7.43 (7.35-7.45)
[2021-02-18] MEDS: dilTIAZem 25 MG/5 ML Vial 20 MG IV BOLUS (01:06)
[2021-02-18] MEDS: 0.9% Saline Lock 10 ML Syringe IV (01:06)
--- NOTE | 2021-02-18 01:27 | PN.HOSP_ITS ---
Hospitalist Note ABG reviewed and shows a pH of 7.43/PCO2 of 33.1/PO2 of 63 with an oxygen saturation of 93%. Chest x-ray was reviewed and shows a complete white out of his left lung and appears to start at the termination of his left mainstem bronchus stent. I discussed the case both with respiratory therapy and nursing and asked them to let the adapted physical education specialist know about his change in status in the left sided Noam out to see if he would like to perform a bronchoscopy. Patient may need intubated.
--- NOTE | 2021-02-18 01:42 | NURSING ---
dr irwin notified of chest xray results, resp 30s, po decreasing throughout night now on 100% afib and abg results.
--- NOTE | 2021-02-18 02:10 | NURSING ---
Received report from Jody Strickland RN. Pt condition has changed from PCU status to ICU status due to changes in respiratory changes. Pt on BiPap 65% and O2 sat improving at this time.
[2021-02-18 04:24] LABS: Absolute Lymphocyte Count 0.43 X10^3/uL (0.83-4.51); Absolute Neutrophil Count 20.8 X10^3/uL (2.0-7.7); Basophil# 0.05 X10^3/uL; Basophil% 0.2 % (0-1); Hematocrit 36.4 % (40-54); Hemoglobin 11.6 g/dL (13.0-16.5); Lymphocyte # 0.43 X10^3/ul (0.83-4.51); Lymphocyte % 1.9 % (19-41); Mean Corp Hgb Conc 31.9 g/dL (32-36); Mean Corpuscular Hgb 30.9 pg (27.0-32.0); Mean Corpuscular Volume 97.1 fL (80-94); Mean Platelet Vol. 11.1 fl (6.2-12.0); Monocyte# 0.97 X10^3/uL; Monocyte% 4.2 % (0-10); NRBC Flagged by Analyzer 0 % (0-5); Neutrophil # 20.84 X10^3/uL (2.7-7.7); Neutrophil % 91.2 % (47-70); POSITIVE DIFFERENTIAL YES; Platelet Count 354 K/mm3 (150-450); RBC Distribution Width CV 14.1 % (11.6-14.6); RBC Distribution Width SD 50.4 fl (35.1-43.9); Red Blood Count 3.75 M/mm3 (4.6-6.2); White Blood Count 22.9 K/mm3 (4.4-11.0)
[2021-02-18] MEDS: Vancomycin IV 1,000 MG/200 ML BAG 200 MG IV ×2 (04:34→17:52)
[2021-02-18 04:47] LABS: Anion Gap 7 (5-15); BUN 21 mg/dL (7-18); BUN/Creat Ratio 32.8 RATIO (10-20); Calcium,Total 9.3 mg/dL (8.5-10.1); Chloride 110 mmol/L (98-107); Creatinine, Serum 0.64 mg/dL (0.70-1.30); EST Glomerular Filtration Rate 134 mL/min (>60); Est Glom Filt Rate - Afr Amer 162 mL/min (>60); Estimated Creatinine Clearance 100.04 ml/min; Glucose 177 mg/dL (74-106); Sodium Level 141 mmol/L (136-145)
[2021-02-18 04:59] LABS: Differential Indicated SCAN CRITERIA MET
--- NOTE | 2021-02-18 05:21 | PCM.PN.INT ---
Assessment & Plan Assessment/Plan (1) Acute hypoxemic respiratory failure: PLAN: RECOMMENDATIONS: 1. Wean supplemental oxygen to maintain saturations at or above 90%. 2. Obtain repeat chest x-ray this morning. 3. Give IV Lasix x1 today. 4. Continue empiric antimicrobials. 5. Continue scheduled bronchodilators and IV steroids. 6. Encourage incentive spirometer use and mobilize patient as tolerated. 7. Transfer patient to [facility] for further evaluation and intervention. IMPRESSIONS: 1. Acute hypoxemic respiratory failure The patient was initially admitted to the hospital with worsening dyspnea. The patient was recently diagnosed with metastatic non-small cell lung carcinoma, and is yet to be started on chemoradiation. He does have evidence of brain mets and was supposed to undergo gamma knife today through [facility]. His chest imaging study did reveal revealed a significant mediastinal tumor with left upper lobe collapse. Previously, in December, the patient underwent bronchoscopy with balloon dilation of the left mainstem and stent placement. His respiratory decompensation is likely the consequence of further tumor infiltration combined with what is likely postobstructive pneumonia. At this time, the patient is maintaining appropriate oxygen saturations on supplemental O2. He has remained hemodynamically stable following IV fluid resuscitation. I did call and speak with his oncology team at [facility], who was in agreement that the patient would likely benefit from being transferred for further evaluation by interventional pulmonology and his primary oncology team, as the patient may warrant more rapid initiation of radiation therapy. In the interim, the patient will be continued on empiric antimicrobials and IV steroids. It is reasonable to continue scheduled bronchodilator therapy as well. 2. History of tobacco dependency with obstructive lung disease likely Continue scheduled bronchodilator therapy and steroids. 3. History of atrial fibrillation/flutter/heart failure with reduced ejection fraction/tachycardia induced cardiomyopathy Continue outpatient medication regimen as tolerated. 4. History of GERD/malnutrition/history of cocaine dependency Complicates care, management, recovery and prognosis. Continue supportive measures as noted above. This note was generated with Meu[employer] dictation software. It may contain incorrect words, spelling, and punctuation that were not noted in checking the note before signing. Subjective Subjective The patient was seen and examined at the bedside this morning. Events from the last 24 hours have been reviewed. The patient is currently afebrile, hemodynamically stable and maintaining appropriate oxygen saturations on 6 L/min via nasal cannula. Last night, the patient acutely decompensated from a respiratory perspective with significantly increased oxygen demand. Chest x-ray that was obtained revealed complete opacification of the left hemithorax. The patient was placed on BiPAP, which he utilized for approximately 1 hour and then refused its use. The patient did also go into atrial fibrillation, which terminated after a Cardizem bolus was given. The patient is currently documented to be overall net +7.3 L for the hospital admission. White count is elevated at 23,000. The patient remains on meropenem and vancomycin. The patient denies any overt dyspnea this morning. He does report the presence of a productive cough. Objective Data Objective Data The patient's most recent lab work, culture data and imaging studies have all been personally reviewed. Strep and urine Legionella antigens were negative. Rapid coronavirus antigen testing was negative. Blood cultures are pending. Vital Signs: Vital Signs Temp Pulse Resp BP Pulse Ox 96.7 F L 64 28 H 150/86 H 91 02/18/21 04:00 02/18/21 05:00 02/18/21 05:00 02/18/21 05:00 02/18/21 05:00 Oxygen Flow Rate (L/min) 6 Oxygen Delivery Method Nasal Cannula Weight: 59 kg Body Mass Index (BMI) 18.7 Intake & Output: Intake and Output for Last 24 Hours 02/16/21 02/17/21 02/18/21 23:59 23:59 23:59 Intake Total 4810.50 / 4810.50 3204.25 / 3204.25 120 / 120 Output Total 1000 / 1000 1000 / 1000 Balance 3810.50 / 3810.50 2204.25 / 2204.25 120 / 120 Medical Nutrition Assessment Dietitian: Malnutrition Criteria Met Start: 02/16/21 08:57 Freq: Status: Active Protocol: Document 02/16/21 11:30 RMA (Rec: 02/16/21 11:30 RMA [id number]) Nutrition Malnutrition Evidence of Malnutrition Exists Yes Malnutrition (severe): Acute Illness/Injury,Chronic Evidenced By Suboptimal Energy Intake ( Severe),Weight Loss (Severe), Physical Changes (Moderate) Clinical Problem Chronic Disease or Condition Related Malnutrition Etiology Severe protein/calorie malnutrition in the context of acute on chronic disease related to inadequate oral intake and increased energy expenditure/needs Signs/Symptoms as evidenced by ~10% wt loss x past 2-3 months, PO meeting less than 50% estimated nutrition needs, muscle/fat wasting +nutrition focused physical exam and BMI 18.7 Status Active Problem Recommendation Dietitian Recommendations/Changes Will liberalize diet to Regular and encourage intake at meals. Will add magic cup BID w/ lunch and dinner. Will add ensure compact w/ breakfast. Additional ONS as pt willing. May need to consider TF support if PO remains poor and weight continues to decline. Lab / Micro Data Attestation: I reviewed the patient's lab results. Result Diagrams: 02/18/21 04:15 02/18/21 04:15 Labs: Laboratory Results - last 24 hr 02/17/21 13:25: Vancomycin Trough 8.6 02/18/21 04:15: WBC 22.9 H, RBC 3.75 L, Hgb 11.6 L, Hct 36.4 L, MCV 97.1 H, MCH 30.9, MCHC 31.9 L, RDW Std Deviation 50.4 H, RDW Coeff of Nafisa 14.1, Plt Count 354, MPV 11.1, Immature Gran % (Auto) 2.500 H, Neut % (Auto) 91.2 H, Lymph % (Auto) 1.9 L, [place] % (Auto) 4.2, Eos % (Auto) 0.0, Baso % (Auto) 0.2, Absolute Neuts (auto) 20.8 H, Absolute Lymphs (auto) 0.43 L, Nucleated RBC % 0 02/18/21 04:15: Sodium 141, Potassium 4.0, Chloride 110 H, Carbon Dioxide 24.0, Anion Gap 7, BUN 21 H, Creatinine 0.64 L, Estim Creat Clear Calc 100.04, Est GFR (MDRD) Af Amer 162, Est GFR (MDRD) Non-Af 134, BUN/Creatinine Ratio 32.8 H, Glucose 177 H, Calcium 9.3 Micro: Microbiology 02/16/21 12:40 Urine, Random Legionella Antigen - Final 02/16/21 12:40 Urine, Random Streptococcus pneumoniae Antigen (M - Final 02/15/21 18:20 Nasal Secretion SARS-CoV-2 Antigen (Rapid) - Final ABG Data ABG results: ABG 02/18/21 00:57 Specimen Type ART Sample Site R Radial pH 7.43 Bicarbonate Actual 22.1 Total CO2 23 Base Excess -2 O2 Saturation 93 L O2 % 50 ABG pCO2 33.1 L ABG pO2 63 L David Test Negative O2 Delivery Device Venti Mask Radiography Diagnostic Testing: Radiology Impression Chest X-Ray 02/18/21 00:57 IMPRESSION: Worsening opacity within the left lung field with now near complete opacification which may indicate combination of pleural effusion, atelectasis or infiltrate. The previously seen left perihilar mass not visualized and likely obscured. Possible right mid lower lobe pneumonia. Unchanged right mid upper lung field nodule. Electronically Signed: Staci Sun MD at 2:04 EDT , Service support , Physical Exam Const alert and no apparent distress General Appearance: cooperative HEENT normocephalic and head/scalp atraumatic Teeth and Gingiva: poor dentition Eyes PERRL, EOMs intact bilaterally and conjunctivae normal Neck supple General: trachea midline Chest inspection of chest normal Resp no use of accessory muscles Effort and Inspection: able to speak in complete sentences Auscultation: rhonchi and diminished lung sounds left Cardio regular rate and regular rhythm GI normal to inspection, nondistended, normoactive bowel sounds Extremity no clubbing, cyanosis or edema Skin no rashes or lesions noted Neuro moves all extremities and no focal motor deficits Psych Mood & Affect: flat affect Charges/Coding Visit Charges Inpatient E&M: 31786 Subs Hosp L3
--- NOTE | 2021-02-18 05:55 | RAD_ITS ---
HISTORY: Respiratory changes EXAMINATION/TECHNIQUE: XR Chest 1 View: COMPARISON: February 18, 2021 FINDINGS: LINES/DEVICES: Left hilar surgical clips are present.. LUNGS: Unchanged left thoracic opacification with partial aeration of the medial left lower lung abrupt opacification of the left mainstem bronchus. Known left lung mass is obscured. Persistent opacification of the right lower lung with mild diffuse interstitial thickening. Unchanged right upper lobe 1.3 cm nodule. No right effusion. No pneumothorax. MEDIASTINUM: Partially obscured cardiomediastinal silhouette. MUSCULOSKELETAL: No acute osseous finding. RAD/Chest 1 View (Portable) IMPRESSION: Abrupt opacification of the distal left mainstem bronchus as can be seen with endobronchial debris or mass. No significant interval change in left thoracic opacification compared to prior exam. at 0648 Reported and signed by: Uday Aguilar MD Electronically Signed: Uday Aguilar MD at 6:46 EDT Tel , Service support ,
--- NOTE | 2021-02-18 06:41 | CPS ---
Patient wanted to come off BiPAP at this time
[2021-02-18] MEDS: Ipratropium/Albuterol Sulfate 3 ML AMPUL.NEB INHALATION ×4 (07:03→19:55)
[2021-02-18] MEDS: Furosemide 40 MG/4 ML Vial IV (07:54)
[2021-02-18] MEDS: Pantoprazole Sodium 20 MG Tablet PO (09:00)
[2021-02-18] MEDS: Ferrous Sulfate 325 MG Tablet PO (09:00)
[2021-02-18] MEDS: Digoxin 125 MCG Tablet PO (09:00)
[2021-02-18] MEDS: Amiodarone 200 MG Tablet PO (09:00)
[2021-02-18] MEDS: Metoprolol(XL)Succ 100 MG Tablet PO (09:17)
--- NOTE | 2021-02-18 09:25 | PCM.PN.HOSP ---
Subjective Subjective Seen and examined. Patient is short of breath, leaning forward. He states it is better than before. Denies chest pain. Objective Data Objective Data Vital Signs: Vital Signs Temp Pulse Resp BP Pulse Ox 96.7 F L 105 H 23 H 142/97 H 91 02/18/21 04:00 02/18/21 09:17 02/18/21 07:03 02/18/21 09:17 02/18/21 07:03 Oxygen Flow Rate (L/min) 6 Oxygen Delivery Method Nasal Cannula Weight: 130 lb 1.164 oz Body Mass Index (BMI) 18.7 Intake & Output: Intake and Output for Last 24 Hours 02/16/21 02/17/21 02/18/21 23:59 23:59 23:59 Intake Total 4810.50 / 4810.50 3204.25 / 3204.25 1320 / 1320 Output Total 1000 / 1000 1000 / 1000 Balance 3810.50 / 3810.50 2204.25 / 2204.25 1320 / 1320 Medical Nutrition Assessment Dietitian: Malnutrition Criteria Met Start: 02/16/21 08:57 Freq: Status: Active Protocol: Document 02/16/21 11:30 RMA (Rec: 02/16/21 11:30 RMA [id number]) Nutrition Malnutrition Evidence of Malnutrition Exists Yes Malnutrition (severe): Acute Illness/Injury,Chronic Evidenced By Suboptimal Energy Intake ( Severe),Weight Loss (Severe), Physical Changes (Moderate) Clinical Problem Chronic Disease or Condition Related Malnutrition Etiology Severe protein/calorie malnutrition in the context of acute on chronic disease related to inadequate oral intake and increased energy expenditure/needs Signs/Symptoms as evidenced by ~10% wt loss x past 2-3 months, PO meeting less than 50% estimated nutrition needs, muscle/fat wasting +nutrition focused physical exam and BMI 18.7 Status Active Problem Recommendation Dietitian Recommendations/Changes Will liberalize diet to Regular and encourage intake at meals. Will add magic cup BID w/ lunch and dinner. Will add ensure compact w/ breakfast. Additional ONS as pt willing. May need to consider TF support if PO remains poor and weight continues to decline. Lab / Micro Data Result Diagrams: 02/18/21 04:15 02/18/21 04:15 Labs: Laboratory Results - last 24 hr 02/17/21 13:25: Vancomycin Trough 8.6 02/18/21 04:15: WBC 22.9 H, RBC 3.75 L, Hgb 11.6 L, Hct 36.4 L, MCV 97.1 H, MCH 30.9, MCHC 31.9 L, RDW Std Deviation 50.4 H, RDW Coeff of Nafisa 14.1, Plt Count 354, MPV 11.1, Immature Gran % (Auto) 2.500 H, Neut % (Auto) 91.2 H, Lymph % (Auto) 1.9 L, [place] % (Auto) 4.2, Eos % (Auto) 0.0, Baso % (Auto) 0.2, Absolute Neuts (auto) 20.8 H, Absolute Lymphs (auto) 0.43 L, Nucleated RBC % 0 02/18/21 04:15: Sodium 141, Potassium 4.0, Chloride 110 H, Carbon Dioxide 24.0, Anion Gap 7, BUN 21 H, Creatinine 0.64 L, Estim Creat Clear Calc 100.04, Est GFR (MDRD) Af Amer 162, Est GFR (MDRD) Non-Af 134, BUN/Creatinine Ratio 32.8 H, Glucose 177 H, Calcium 9.3 Micro: Microbiology 02/15/21 18:16 Blood Culture (Wb) - Anticubital Right Blood Culture - Preliminary No growth in 48 hours. 02/16/21 12:40 Urine, Random Legionella Antigen - Final 02/16/21 12:40 Urine, Random Streptococcus pneumoniae Antigen (M - Final 02/15/21 18:20 Nasal Secretion SARS-CoV-2 Antigen (Rapid) - Final ABG Data ABG results: ABG 02/18/21 00:57 Specimen Type ART Sample Site R Radial pH 7.43 Bicarbonate Actual 22.1 Total CO2 23 Base Excess -2 O2 Saturation 93 L O2 % 50 ABG pCO2 33.1 L ABG pO2 63 L David Test Negative O2 Delivery Device Venti Mask Radiography Diagnostic Testing: Radiology Impression Chest X-Ray 02/18/21 00:57 IMPRESSION: Worsening opacity within the left lung field with now near complete opacification which may indicate combination of pleural effusion, atelectasis or infiltrate. The previously seen left perihilar mass not visualized and likely obscured. Possible right mid lower lobe pneumonia. Unchanged right mid upper lung field nodule. Electronically Signed: Staci Sun MD at 2:04 EDT , Service support , Chest X-Ray 02/18/21 05:55 IMPRESSION: Abrupt opacification of the distal left mainstem bronchus as can be seen with endobronchial debris or mass. No significant interval change in left thoracic opacification compared to prior exam. at 0648 Reported and signed by: Uday Aguilar MD Electronically Signed: Uday Aguilar MD at 6:46 EDT Tel , Service support , Physical Exam Narrative General: Alert, Oriented x3, Cooperative HEENT: Atraumatic, PERRLA, EOMI, Normocephalic Oral: No Gingival or Mucosal Lesions/ Ulcerations Neck: Supple, No JVD, Negative Carotid Bruits Lungs: Air entry diminished in bilateral lungs. Bilateral expiratory rhonchi. Cardiovascular: sinus tachycardia, Normal S1, Normal S2, No murmurs Abdomen: Bowel Sounds Present, Soft, Non Tender, Non-Distended : No renal angle tenderness. No suprapubic tenderness. Extremities: No edema, Capillary Refill Less than 3 Seconds Skin: No rashes, No breakdown Musculoskeletal: Mild atrophy of muscles of extremities. No Tenderness to Palpation of Joints or Extremities Neurological: Cranial nerves II-XII grossly intact, DTR 2+/4 and Symmetrical, Neuro grossly intact Psych/Mental Status: Flat affect. Assessment & Plan Assessment/Plan (1) Acute hypoxemic respiratory failure: (2) Pneumonia: QUALIFIERS: Pneumonia type: due to unspecified organism Laterality: left Lung location: upper lobe of lung Qualified Code(s): J18.9 - Pneumonia, unspecified organism (3) Severe protein-calorie malnutrition: (4) Septic shock: PLAN: 1. Acute hypoxic respiratory failure secondary to postobstructive pneumonia with lung mass and COPD: Hoop Coiling Machine Operator recommended transfer to [facility] for interventional vehicle sales professional and oncologist evaluation. Dr. Crowe talked to the [facility] transfer line and they're not accepting outside ICU transfer at this time but said to call back when patient is stable and transferred to the floor 2. septic shock secondary to pneumonia: Resolved with IV fluid. No pressors needed 3. suspected gram negative pneumonia on aztreonam, Levaquin and vancomycin. Preliminary sputum culture appears normal respiratory rick. Blood culture negative for 48 hours. Rapid SARS-CoV-2 antigen negative. 4. Lung cancer f/u with medical and radiation oncologist. 5. severe protein calorie malnutrition regular diet and supplement nutrition consult 6. VTE prophylaxis: on enoxaparin. Normally on apixaban. Unclear why. Charges/Coding Visit Charges Inpatient E&M: 23273 [facility] Hosp L3
[2021-02-18] MEDS: Enoxaparin 60 MG/0.6 ML Syringe SC ×2 (11:44→21:21)
--- NOTE | 2021-02-18 13:02 | CASEMGMT ---
TAWANDA received a call from Adele Navasjessenia trimming caser([phone]), she asked for updates. TAWANDA will let Sofia know when pt gets transferred. She had been looking into waiver services for pt, however pt is now in the hospital. SW met w/pt, assisted pt in completing LW/POA. Pt listed his brother Bladimir as POA. SW gave pt originals and copies, copies placed in chart and with information to go to [facility]--as pt is to be transferred there. SW also gave pt information on [facility]. SW also gave pt a list of senior living facilities in pt's preferred geographic area, that take his insurance, complete with resource and quality use data. Pt does think he will need to go to a long-term after [facility]. SW explained to pt he should have a SW or CM up at [facility] to assist with the process, and explained he has the right to ask to go to any facility that takes his insurance, he does not have to go to a place in [place]. Pt states wants to go to [facility]. SW let pt know to let the SW or CM up at [facility] know this. Pt states understanding. SW remains available for any additional social service needs while pt is here at [place]. WESTLEY Reyes
[2021-02-18] MEDS: Acetaminophen 325 MG Tablet 650 MG PO ×2 (15:28→21:28)
--- NOTE | 2021-02-18 20:29 | NURSING ---
pt put into chair
[2021-02-18] MEDS: MELATONIN 3 MG TABLET PO (21:21)
[2021-02-18] MEDS: Mirtazapine 15 MG Tablet PO (21:21)
--- NOTE | 2021-02-18 21:35 | NURSING ---
hs snack given
--- NOTE | 2021-02-18 22:34 | NURSING ---
pt put back to bed. po 94% on 6lnc pt decreased to 4lnc
[2021-02-19] VITALS (22 sets, daily range): BP systolic 122–166; BP diastolic 79–106; PULSE 60–88; RESP 14–29; TEMP 35.9–36.9; O2SAT 91–94
--- NOTE | 2021-02-19 00:23 | NURSING ---
02 decreased to 3lnc. appears to be sleeping at this time
[2021-02-19] MEDS: Acetaminophen 325 MG Tablet 650 MG PO ×2 (04:15→20:48)
[2021-02-19] MEDS: 0.9% Saline Lock 10 ML Syringe IV ×3 (05:02→23:20)
[2021-02-19 05:13] LABS: Vancomycin, Trough Level 11.1 ug/mL (5.0-15.0)
[2021-02-19] MEDS: Vancomycin IV 1,000 MG/200 ML BAG 200 MG IV (05:17)
--- NOTE | 2021-02-19 05:59 | PN.CC_ITS ---
Assessment & Plan Assessment/Plan (1) Acute hypoxemic respiratory failure: PLAN: RECOMMENDATIONS: 1. Wean supplemental oxygen to maintain saturations at or above 90%. 2. Continue empiric antimicrobials. 3. Continue scheduled bronchodilators and IV steroids. 4. Encourage incentive spirometer use and mobilize patient as tolerated. 5. Transfer patient to [facility] for further evaluation and intervention. IMPRESSIONS: 1. Acute hypoxemic respiratory failure The patient was initially admitted to the hospital with worsening dyspnea. The patient was recently diagnosed with metastatic non-small cell lung carcinoma, and is yet to be started on chemoradiation. He does have evidence of brain mets and was supposed to undergo gamma knife through [facility]. His chest imaging study did reveal revealed a significant mediastinal tumor with left upper lobe collapse. Previously, in December, the patient underwent bronchoscopy with balloon dilation of the left mainstem and stent placement. His respiratory decompensation is likely the consequence of further tumor infiltration combined with what is likely postobstructive pneumonia. At this time, the patient is maintaining appropriate oxygen saturations on supplemental O2. He has remained hemodynamically stable following IV fluid resuscitation. I did call and speak with his oncology team at [facility], who was in agreement that the patient would likely benefit from being transferred for further evaluation by interventional pulmonology and his primary oncology team, as the patient may warrant more rapid initiation of radiation therapy. In the interim, the patient will be continued on empiric antimicrobials and IV steroids. It is reasonable to continue scheduled bronchodilator therapy as well. 2. History of tobacco dependency with obstructive lung disease likely Continue scheduled bronchodilator therapy and steroids. 3. History of atrial fibrillation/flutter/heart failure with reduced ejection fraction/tachycardia induced cardiomyopathy Continue outpatient medication regimen as tolerated. 4. History of GERD/malnutrition/history of cocaine dependency Complicates care, management, recovery and prognosis. Continue supportive measures as noted above. This note was generated with [employer] dictation software. It may contain incorrect words, spelling, and punctuation that were not noted in checking the note before signing. Subjective Subjective The patient was seen and examined at the bedside this morning. Events from the last 24 hours have been reviewed. The patient is currently afebrile, hemodynamically stable and maintaining appropriate oxygen saturations on 3 L/min via nasal cannula. No issues were noted by the overnight nursing staff. The patient is still awaiting bed availability, with plans to transfer to [facility] for further management. Objective Data Objective Data The patient's most recent lab work, culture data and imaging studies have all been personally reviewed. Strep and urine Legionella antigens were negative. Rapid coronavirus antigen testing was negative. Blood cultures are pending. Vital Signs: Vital Signs Temp Pulse Resp BP Pulse Ox 97.9 F 62 17 160/90 H 92 02/19/21 05:05 02/19/21 05:05 02/19/21 05:05 02/19/21 05:05 02/19/21 05:05 Oxygen Flow Rate (L/min) 3 Oxygen Delivery Method Nasal Cannula Weight: 60.8 kg Body Mass Index (BMI) 18.7 Intake & Output: Intake and Output for Last 24 Hours 02/17/21 02/18/21 02/19/21 23:59 23:59 23:59 Intake Total 3204.25 / 3204.25 2746.25 / 2746.25 720 / 720 Output Total 1000 / 1000 3250 / 3250 400 / 400 Balance 2204.25 / 2204.25 -503.75 / -503.75 320 / 320 Medical Nutrition Assessment Dietitian: Malnutrition Criteria Met Start: 02/16/21 08:57 Freq: Status: Active Protocol: Document 02/18/21 09:57 AG (Rec: 02/18/21 09:57 [id number]) Nutrition Malnutrition Evidence of Malnutrition Exists Yes Malnutrition (severe): Chronic Evidenced By Suboptimal Energy Intake ( Severe),Weight Loss (Severe), Physical Changes (Moderate) Clinical Problem Chronic Disease or Condition Related Malnutrition Etiology Severe protein/calorie malnutrition in the context of acute on chronic disease related to inadequate oral intake and increased energy expenditure/needs d/t cancer Signs/Symptoms as evidenced by ~10% wt loss x past 2-3 months, PO meeting less than 50% estimated nutrition needs, muscle/fat wasting +nutrition focused physical exam and BMI 19.2 Status Active Problem Recommendation Dietitian Recommendations/Changes Continue regular diet. Will add ensure compact w/ breakfast and magic cup w/ lunch and dinner for additional calories/protein if consumed. Lab / Micro Data Attestation: I reviewed the patient's lab results. Result Diagrams: 02/19/21 04:45 02/19/21 04:45 Labs: Laboratory Results - last 24 hr 02/19/21 04:45: Vancomycin Trough 11.1 Micro: Microbiology 02/17/21 11:30 Sputum, Expectorated/Coughed Gram Stain - Final 02/17/21 11:30 Sputum, Expectorated/Coughed Respiratory Culture - Preliminary Appears to be normal respiratory rick. Further studies to follow. 02/15/21 18:16 Blood Culture (Wb) - Anticubital Right Blood Culture - Preliminary No growth in 48 hours. 02/16/21 12:40 Urine, Random Legionella Antigen - Final 02/16/21 12:40 Urine, Random Streptococcus pneumoniae Antigen (M - Final 02/15/21 18:20 Nasal Secretion SARS-CoV-2 Antigen (Rapid) - Final Radiography Diagnostic Testing: Radiology Impression Chest X-Ray 02/18/21 05:55 IMPRESSION: Abrupt opacification of the distal left mainstem bronchus as can be seen with endobronchial debris or mass. No significant interval change in left thoracic opacification compared to prior exam. at 0648 Reported and signed by: Uday Aguilar MD Electronically Signed: Uday Aguilar MD at 6:46 EDT Tel , Service support , Physical Exam Const alert and no apparent distress General Appearance: cooperative HEENT normocephalic and head/scalp atraumatic Teeth and Gingiva: poor dentition Eyes PERRL, EOMs intact bilaterally and conjunctivae normal Neck supple General: trachea midline Chest inspection of chest normal Resp no use of accessory muscles Effort and Inspection: able to speak in complete sentences Auscultation: rhonchi and diminished lung sounds left Cardio regular rate and regular rhythm GI normal to inspection, nondistended, normoactive bowel sounds Extremity no clubbing, cyanosis or edema Skin no rashes or lesions noted Neuro moves all extremities and no focal motor deficits Psych Mood & Affect: flat affect Charges/Coding Visit Charges Inpatient E&M: 95840 Subs Hosp L2
[2021-02-19 06:18] LABS: Absolute Lymphocyte Count 0.75 X10^3/uL (0.83-4.51); Absolute Neutrophil Count 20.7 X10^3/uL (2.0-7.7); Basophil# 0.06 X10^3/uL; Basophil% 0.3 % (0-1); Hematocrit 36.9 % (40-54); Hemoglobin 12.1 g/dL (13.0-16.5); Lymphocyte # 0.75 X10^3/ul (0.83-4.51); Lymphocyte % 3.2 % (19-41); Mean Corp Hgb Conc 32.8 g/dL (32-36); Mean Corpuscular Hgb 31.4 pg (27.0-32.0); Mean Corpuscular Volume 95.8 fL (80-94); Mean Platelet Vol. 11.5 fl (6.2-12.0); Monocyte% 5.1 % (0-10); NRBC Flagged by Analyzer 0.1 % (0-5); Neutrophil # 20.72 X10^3/uL (2.7-7.7); Neutrophil % 88.2 % (47-70); POSITIVE DIFFERENTIAL YES; Platelet Count 353 K/mm3 (150-450); RBC Distribution Width CV 14.5 % (11.6-14.6); RBC Distribution Width SD 51.1 fl (35.1-43.9); Red Blood Count 3.85 M/mm3 (4.6-6.2); White Blood Count 23.5 K/mm3 (4.4-11.0)
--- NOTE | 2021-02-19 06:23 | PCM.RX.CS ---
Consult Pharmacy has been consulted to manage selected antiobiotic: Vancomycin Type of Consult: Follow-up Labs: Vancomycin Trough 11.1 ug/mL (5.0-15.0) 02/19/21 04:45 Microbiology: Microbiology 02/17/21 11:30 Sputum, Expectorated/Coughed Gram Stain - Final 02/17/21 11:30 Sputum, Expectorated/Coughed Respiratory Culture - Preliminary Appears to be normal respiratory rick. Further studies to follow. 02/15/21 18:16 Blood Culture (Wb) - Anticubital Right Blood Culture - Preliminary No growth in 48 hours. 02/16/21 12:40 Urine, Random Legionella Antigen - Final 02/16/21 12:40 Urine, Random Streptococcus pneumoniae Antigen (M - Final 02/15/21 18:20 Nasal Secretion SARS-CoV-2 Antigen (Rapid) - Final Goal Trough: 15-20 mcg/mL Pharmacy Plan for Drug Dosing: Pharmacy Service will continue to monitor and adjust dosing as required. TROUGH 11.1 INCREASE TO 1250MG Q12H AND FOLLOW UP TROUGH PRIOR TO 4TH DOSE Follow-Up Labs: Trough Vancomycin Labs to be done on [date and time ordered]: 02/21 @ 4988
[2021-02-19 06:33] LABS: Differential Indicated SCAN CRITERIA MET
[2021-02-19 06:38] LABS: Anion Gap 7 (5-15); BUN 24 mg/dL (7-18); BUN/Creat Ratio 43.2 RATIO (10-20); Calcium,Total 9.2 mg/dL (8.5-10.1); Chloride 106 mmol/L (98-107); Creatinine, Serum 0.56 mg/dL (0.70-1.30); EST Glomerular Filtration Rate 158 mL/min (>60); Est Glom Filt Rate - Afr Amer 192 mL/min (>60); Estimated Creatinine Clearance 117.62 ml/min; Glucose 137 mg/dL (74-106); Potassium 4.4 mmol/L (3.5-5.1); Sodium Level 141 mmol/L (136-145)
[2021-02-19 07:12] LABS: Differential Comment SCANNED
[2021-02-19] MEDS: Ipratropium/Albuterol Sulfate 3 ML AMPUL.NEB INHALATION ×4 (07:26→19:10)
--- NOTE | 2021-02-19 09:30 | PN.HOSP_ITS ---
Subjective Subjective Seen and examined. Patient sitting upright in the chair. Weak cough. Still not able to bring up phlegm. Mild chest congestion. Objective Data Objective Data Vital Signs: Vital Signs Temp Pulse Resp BP Pulse Ox 97.9 F 63 19 H 160/90 H 91 02/19/21 05:05 02/19/21 07:27 02/19/21 07:27 02/19/21 05:05 02/19/21 07:27 Oxygen Flow Rate (L/min) 3 Oxygen Delivery Method Nasal Cannula Weight: 134 lb 0.657 oz Body Mass Index (BMI) 18.7 Intake & Output: Intake and Output for Last 24 Hours 02/17/21 02/18/21 02/19/21 23:59 23:59 23:59 Intake Total 3204.25 / 3204.25 2746.25 / 2746.25 920 / 920 Output Total 1000 / 1000 3250 / 3250 400 / 400 Balance 2204.25 / 2204.25 -503.75 / -503.75 520 / 520 Medical Nutrition Assessment Dietitian: Malnutrition Criteria Met Start: 02/16/21 08:57 Freq: Status: Active Protocol: Document 02/18/21 09:57 (Rec: 02/18/21 09:57 [id number]) Nutrition Malnutrition Evidence of Malnutrition Exists Yes Malnutrition (severe): Chronic Evidenced By Suboptimal Energy Intake ( Severe),Weight Loss (Severe), Physical Changes (Moderate) Clinical Problem Chronic Disease or Condition Related Malnutrition Etiology Severe protein/calorie malnutrition in the context of acute on chronic disease related to inadequate oral intake and increased energy expenditure/needs d/t cancer Signs/Symptoms as evidenced by ~10% wt loss x past 2-3 months, PO meeting less than 50% estimated nutrition needs, muscle/fat wasting +nutrition focused physical exam and BMI 19.2 Status Active Problem Recommendation Dietitian Recommendations/Changes Continue regular diet. Will add ensure compact w/ breakfast and magic cup w/ lunch and dinner for additional calories/protein if consumed. Lab / Micro Data Result Diagrams: 02/19/21 04:45 02/19/21 04:45 Labs: Laboratory Results - last 24 hr 02/19/21 04:45: Vancomycin Trough 11.1 02/19/21 04:45: WBC 23.5 H, RBC 3.85 L, Hgb 12.1 L, Hct 36.9 L, MCV 95.8 H, MCH 31.4, MCHC 32.8, RDW Std Deviation 51.1 H, RDW Coeff of Nafisa 14.5, Plt Count 353, MPV 11.5, Immature Gran % (Auto) 3.200 H, Neut % (Auto) 88.2 H, Lymph % (Auto) 3.2 L, [place] % (Auto) 5.1, Eos % (Auto) 0.0, Baso % (Auto) 0.3, Absolute Neuts (auto) 20.7 H, Absolute Lymphs (auto) 0.75 L, Nucleated RBC % 0.1, Differential Comment SCANNED 02/19/21 04:45: Sodium 141, Potassium 4.4, Chloride 106, Carbon Dioxide 28.0, Anion Gap 7, BUN 24 H, Creatinine 0.56 L, Estim Creat Clear Calc 117.62, Est GFR (MDRD) Af Amer 192, Est GFR (MDRD) Non-Af 158, BUN/Creatinine Ratio 43.2 H, Glucose 137 H, Calcium 9.2 Micro: Microbiology 02/17/21 11:30 Sputum, Expectorated/Coughed Gram Stain - Final 02/17/21 11:30 Sputum, Expectorated/Coughed Respiratory Culture - Preliminary Appears to be normal respiratory rick. Further studies to follow. 02/15/21 18:16 Blood Culture (Wb) - Anticubital Right Blood Culture - Preliminary No growth in 48 hours. 02/16/21 12:40 Urine, Random Legionella Antigen - Final 02/16/21 12:40 Urine, Random Streptococcus pneumoniae Antigen (M - Final 02/15/21 18:20 Nasal Secretion SARS-CoV-2 Antigen (Rapid) - Final Physical Exam Narrative General: Alert, Oriented x3, Cooperative HEENT: Atraumatic, PERRLA, EOMI, Normocephalic Oral: No Gingival or Mucosal Lesions/ Ulcerations Neck: Supple, No JVD, Negative Carotid Bruits Lungs: Air entry diminished in bilateral lungs. Bilateral expiratory rhonchiAnd crepitations. Cardiovascular: sinus Rhythm, Normal S1, Normal S2, No murmurs Abdomen: Bowel Sounds Present, Soft, Non Tender, Non-Distended : No renal angle tenderness. No suprapubic tenderness. Extremities: No edema, Capillary Refill Less than 3 Seconds Skin: No rashes, No breakdown Musculoskeletal: Mild atrophy of muscles of extremities. No Tenderness to Palpation of Joints or Extremities Neurological: Cranial nerves II-XII grossly intact, DTR 2+/4 and Symmetrical, Neuro grossly intact Psych/Mental Status: Flat affect. Assessment & Plan Assessment/Plan (1) Acute hypoxemic respiratory failure: (2) Pneumonia: QUALIFIERS: Pneumonia type: due to unspecified organism Laterality: left Lung location: upper lobe of lung Qualified Code(s): J18.9 - Pneumonia, unspecified organism (3) Severe protein-calorie malnutrition: (4) Septic shock: PLAN: 1. Acute hypoxic respiratory failure secondary to postobstructive pneumonia with lung mass and COPD: Slitting Machine Operator Helper recommended transfer to [facility] for interventional librarian specialist and oncologist evaluation. Dr. Crowe talked to the [facility] transfer line and they're not accepting outside ICU transfer at this time but said to call back when patient is stable and transferred to the floor 02/19 : On scheduled bronchodilator, IV steroids and incentive spirometry. On antibiotics. Transfer to [facility] when bed is available. 2. septic shock secondary to pneumonia: Resolved with IV fluid. No pressors needed 3. suspected gram negative pneumonia on aztreonam, Levaquin and vancomycin. Preliminary sputum culture appears normal respiratory rick. Blood culture negative for 48 hours. Rapid SARS-CoV-2 antigen negative. 4. Lung cancer Follow-up with medical and radiation oncologist. 5. severe protein calorie malnutrition * regular diet and supplement * nutrition consult 6. VTE prophylaxis: on enoxaparin. Normally on apixaban. Unclear why. Charges/Coding Visit Charges Inpatient E&M: 81445 [facility] Hosp L3
[2021-02-19] MEDS: Metoprolol(XL)Succ 100 MG Tablet PO (10:10)
[2021-02-19] MEDS: Pantoprazole Sodium 20 MG Tablet PO (10:10)
[2021-02-19] MEDS: Enoxaparin 60 MG/0.6 ML Syringe SC ×2 (10:10→23:00)
[2021-02-19] MEDS: Amiodarone 200 MG Tablet PO (10:10)
[2021-02-19] MEDS: Digoxin 125 MCG Tablet PO (10:10)
[2021-02-19] MEDS: Mirtazapine 15 MG Tablet PO (22:56)
[2021-02-19] MEDS: MELATONIN 3 MG TABLET PO (22:56)
[2021-02-20] VITALS (19 sets, daily range): BP systolic 135–164; BP diastolic 72–99; PULSE 57–68; RESP 16–24; TEMP 35.5–36.6; O2SAT 91–94
[2021-02-20] MEDS: 0.9% Saline Lock 10 ML Syringe IV ×4 (05:20→17:34)
[2021-02-20] MEDS: Ipratropium/Albuterol Sulfate 3 ML AMPUL.NEB INHALATION ×3 (07:07→18:53)
--- NOTE | 2021-02-20 07:38 | PCM.PN.INT ---
Assessment & Plan Assessment/Plan (1) Acute hypoxemic respiratory failure: PLAN: RECOMMENDATIONS: 1. Wean supplemental oxygen to maintain saturations at or above 90%. 2. Continue empiric antimicrobials. 3. Continue scheduled bronchodilators and IV steroids. 4. Encourage incentive spirometer use and mobilize patient as tolerated. 5. Transfer patient to [facility] for further evaluation and intervention. 6. Given the patient's lack of ICU needs, will sign off. Please call with any additional questions. IMPRESSIONS: 1. Acute hypoxemic respiratory failure The patient was initially admitted to the hospital with worsening dyspnea. The patient was recently diagnosed with metastatic non-small cell lung carcinoma, and is yet to be started on chemoradiation. He does have evidence of brain mets and was supposed to undergo gamma knife through [facility]. His chest imaging study did reveal revealed a significant mediastinal tumor with left upper lobe collapse. Previously, in December, the patient underwent bronchoscopy with balloon dilation of the left mainstem and stent placement. His respiratory decompensation is likely the consequence of further tumor infiltration combined with what is likely postobstructive pneumonia. At this time, the patient is maintaining appropriate oxygen saturations on supplemental O2. He has remained hemodynamically stable following IV fluid resuscitation. I did call and speak with his oncology team at [facility], who was in agreement that the patient would likely benefit from being transferred for further evaluation by interventional pulmonology and his primary oncology team, as the patient may warrant more rapid initiation of radiation therapy. In the interim, the patient will be continued on empiric antimicrobials and IV steroids. It is reasonable to continue scheduled bronchodilator therapy as well. 2. History of tobacco dependency with obstructive lung disease likely Continue scheduled bronchodilator therapy and steroids. 3. History of atrial fibrillation/flutter/heart failure with reduced ejection fraction/tachycardia induced cardiomyopathy Continue outpatient medication regimen as tolerated. 4. History of GERD/malnutrition/history of cocaine dependency Complicates care, management, recovery and prognosis. Continue supportive measures as noted above. This note was generated with [employer] dictation software. It may contain incorrect words, spelling, and punctuation that were not noted in checking the note before signing. Subjective Subjective The patient was seen and examined at the bedside this morning. Events from the last 24 hours have been reviewed. The patient is currently afebrile, hemodynamically stable and maintaining appropriate oxygen saturations on 4 L/min via nasal cannula. The patient is still awaiting bed availability, with plans to transfer to [facility] for further management. Objective Data Objective Data The patient's most recent lab work, culture data and imaging studies have all been personally reviewed. Strep and urine Legionella antigens were negative. Rapid coronavirus antigen testing was negative. Blood cultures are pending. Vital Signs: Vital Signs Temp Pulse Resp BP Pulse Ox 97.5 F L 63 17 164/99 H 92 02/20/21 05:22 02/20/21 07:09 02/20/21 07:09 02/20/21 05:22 02/20/21 07:09 Oxygen Flow Rate (L/min) 4 Oxygen Delivery Method Nasal Cannula Weight: 60.8 kg Body Mass Index (BMI) 18.7 Intake & Output: Intake and Output for Last 24 Hours 02/18/21 02/19/21 02/20/21 23:59 23:59 23:59 Intake Total 2746.25 / 2746.25 1855 / 1855 120 / 120 Output Total 3250 / 3250 400 / 550 300 / 300 Balance -503.75 / -503.75 1455 / 1305 -180 / -180 Medical Nutrition Assessment Dietitian: Malnutrition Criteria Met Start: 02/16/21 08:57 Freq: Status: Active Protocol: Document 02/18/21 09:57 AG (Rec: 02/18/21 09:57 [id number]) Nutrition Malnutrition Evidence of Malnutrition Exists Yes Malnutrition (severe): Chronic Evidenced By Suboptimal Energy Intake ( Severe),Weight Loss (Severe), Physical Changes (Moderate) Clinical Problem Chronic Disease or Condition Related Malnutrition Etiology Severe protein/calorie malnutrition in the context of acute on chronic disease related to inadequate oral intake and increased energy expenditure/needs d/t cancer Signs/Symptoms as evidenced by ~10% wt loss x past 2-3 months, PO meeting less than 50% estimated nutrition needs, muscle/fat wasting +nutrition focused physical exam and BMI 19.2 Status Active Problem Recommendation Dietitian Recommendations/Changes Continue regular diet. Will add ensure compact w/ breakfast and magic cup w/ lunch and dinner for additional calories/protein if consumed. Lab / Micro Data Attestation: I reviewed the patient's lab results. Result Diagrams: 02/19/21 04:45 02/19/21 04:45 Micro: Microbiology 02/17/21 11:30 Sputum, Expectorated/Coughed Gram Stain - Final 02/17/21 11:30 Sputum, Expectorated/Coughed Respiratory Culture - Preliminary Appears to be normal respiratory rick. Further studies to follow. 02/15/21 18:16 Blood Culture (Wb) - Anticubital Right Blood Culture - Preliminary No growth in 48 hours. 02/16/21 12:40 Urine, Random Legionella Antigen - Final 02/16/21 12:40 Urine, Random Streptococcus pneumoniae Antigen (M - Final 02/15/21 18:20 Nasal Secretion SARS-CoV-2 Antigen (Rapid) - Final Physical Exam Const alert and no apparent distress General Appearance: cooperative HEENT normocephalic and head/scalp atraumatic Teeth and Gingiva: poor dentition Eyes PERRL, EOMs intact bilaterally and conjunctivae normal Neck supple General: trachea midline Chest inspection of chest normal Resp no use of accessory muscles Effort and Inspection: able to speak in complete sentences Auscultation: rhonchi and diminished lung sounds left Cardio regular rate and regular rhythm GI normal to inspection, nondistended, normoactive bowel sounds Extremity no clubbing, cyanosis or edema Skin no rashes or lesions noted Neuro moves all extremities and no focal motor deficits Psych Mood & Affect: flat affect Charges/Coding Visit Charges Inpatient E&M: 28075 Subs Hosp L2
[2021-02-20] MEDS: Acetaminophen 325 MG Tablet 650 MG PO (08:17)
[2021-02-20] MEDS: Enoxaparin 60 MG/0.6 ML Syringe SC ×2 (09:43→21:15)
[2021-02-20] MEDS: Digoxin 125 MCG Tablet PO (09:44)
[2021-02-20] MEDS: Amiodarone 200 MG Tablet PO (09:44)
[2021-02-20] MEDS: Ferrous Sulfate 325 MG Tablet PO (09:44)
[2021-02-20] MEDS: Pantoprazole Sodium 20 MG Tablet PO (09:47)
[2021-02-20] MEDS: Metoprolol(XL)Succ 100 MG Tablet PO (09:48)
--- NOTE | 2021-02-20 14:19 | PCM.PN.HOSP ---
Subjective Subjective Feels well. No new events. States he has been vaccinated for COVID-19. Objective Data Objective Data Vital Signs: Vital Signs Temp Pulse Resp BP Pulse Ox 36.6 C 65 24 H 141/74 H 94 02/20/21 13:51 02/20/21 13:51 02/20/21 13:51 02/20/21 13:51 02/20/21 13:51 Oxygen Flow Rate (L/min) 4 Oxygen Delivery Method Nasal Cannula Weight: 60.3 kg Body Mass Index (BMI) 18.7 Intake & Output: Intake and Output for Last 24 Hours 02/18/21 02/19/21 02/20/21 23:59 23:59 23:59 Intake Total 2746.25 / 2746.25 1855 / 1855 240 / 240 Output Total 3250 / 3250 400 / 550 700 / 700 Balance -503.75 / -503.75 1455 / 1305 -460 / -460 Medical Nutrition Assessment Dietitian: Malnutrition Criteria Met Start: 02/16/21 08:57 Freq: Status: Active Protocol: Document 02/18/21 09:57 (Rec: 02/18/21 09:57 [id number]) Nutrition Malnutrition Evidence of Malnutrition Exists Yes Malnutrition (severe): Chronic Evidenced By Suboptimal Energy Intake ( Severe),Weight Loss (Severe), Physical Changes (Moderate) Clinical Problem Chronic Disease or Condition Related Malnutrition Etiology Severe protein/calorie malnutrition in the context of acute on chronic disease related to inadequate oral intake and increased energy expenditure/needs d/t cancer Signs/Symptoms as evidenced by ~10% wt loss x past 2-3 months, PO meeting less than 50% estimated nutrition needs, muscle/fat wasting +nutrition focused physical exam and BMI 19.2 Status Active Problem Recommendation Dietitian Recommendations/Changes Continue regular diet. Will add ensure compact w/ breakfast and magic cup w/ lunch and dinner for additional calories/protein if consumed. Lab / Micro Data Result Diagrams: 02/19/21 04:45 02/19/21 04:45 Micro: Microbiology 02/17/21 11:30 Sputum, Expectorated/Coughed Gram Stain - Final 02/17/21 11:30 Sputum, Expectorated/Coughed Respiratory Culture - Final 02/15/21 18:16 Blood Culture (Wb) - Anticubital Right Blood Culture - Preliminary No growth in 48 hours. 02/16/21 12:40 Urine, Random Legionella Antigen - Final 02/16/21 12:40 Urine, Random Streptococcus pneumoniae Antigen (M - Final 02/15/21 18:20 Nasal Secretion SARS-CoV-2 Antigen (Rapid) - Final Physical Exam Const alert Resp normal respiratory effort, no retractions, no use of accessory muscles and clear to auscultation bilaterally Cardio regular rate, regular rhythm, S1 normal heart sound and S2 normal heart sound GI normal to inspection, nondistended, normoactive bowel sounds, soft to palpation, non-tender and non-distended Extremity normal to inspection Neuro Sensorium / Orientation: awake and alert Assessment & Plan Assessment/Plan (1) Acute hypoxemic respiratory failure: (2) Pneumonia: QUALIFIERS: Pneumonia type: due to unspecified organism Laterality: left Lung location: upper lobe of lung Qualified Code(s): J18.9 - Pneumonia, unspecified organism (3) Severe protein-calorie malnutrition: (4) Septic shock: PLAN: 1. Acute hypoxic respiratory failure 2/2 lung mass and post obstructive pneumonia with COPD DW Dr. Sheffield who recommends transfer to [facility] for interventional pulmonology eval and oncology eval. 02/16: I spoke with [facility] transfer line. They are not accepting outside ICU transfers at this time (pt currently in ICU). They told me if pt is stable on medical floor for 24h, then to call back. 2. septic shock 2/2 pneumonia resolved with IVF. No pressors needed. 3. suspected gram negative pneumonia on Aztreonam, LVQ, vanc check SCx pulm toilet 4. Lung cancer f/u with med and rad onc 5. severe protein calorie malnutrition regular diet and supplement nutrition consult 6. VTE prophylaxis: on enoxaparin. Normally on apixaban. Unclear why. Charges/Coding Visit Charges Inpatient E&M: 06349 Subs Hosp L2
--- NOTE | 2021-02-20 14:41 | NURSING ---
This nurse called [facility] to ask about bed availability for This pt. This Nurse spoke with Chente whom said there is still not a bed available.
--- NOTE | 2021-02-20 19:45 | NURSING ---
[facility] called and spoke to this nurse, there is a bed availability G70 bed 1. [facility] and they are aware of transfer but wont be here until 0200.
[2021-02-20] MEDS: Mirtazapine 15 MG Tablet PO (21:15)
--- NOTE | 2021-02-20 23:36 | PCS.PANDOC ---
PANDEMIC DOCUMENTATION INITIATED: Date: 02/20/21 Time: 1899
[2021-02-21 00:07] VITALS: PULSE 62
[2021-02-21 01:46] VITALS: BP 144/83; PULSE 60; RESP 20; TEMP 36.6; O2SAT 92
[2021-02-21 03:22] VITALS: RESP 20
[2021-02-21 04:16] VITALS: BP 164/91; PULSE 60; RESP 20; TEMP 36.7; O2SAT 91
[2021-02-21 04:53] VITALS: BP 164/91; PULSE 60; RESP 20; TEMP 36.7; O2SAT 91
--- NOTE | 2021-02-21 07:22 | DS.PCM_ITS ---
Providers Date of Admission: 02/15/21 Primary Care Physician: Salma Fitch CASINO ASSISTANT MANAGER-Bhumi Consultations 02/16/21 00:19 Consult: Supervisor Dock / Pulmonary Medicine Routine Consulting Provider: Barrera Sheffield Reason for Consult: SEPSIS EMERGENT Consult: No Notified: Yes Date Notified: 02/15/21 Time Notified: 21:56 Method of Notification: Text Consult: Oncology/Hematology Routine Consulting Provider: Wicho Castillo Reason for Consult: SEPSIS WITH WORSENING CANCER EMERGENT Consult: No Notified: Yes Date Notified: 02/16/21 Time Notified: 09:16 Method of Notification: Page Reason For Visit: SEPSIS SECONDARY TO POSTOBSTRUCTIVE PNEUMONIA Diagnosis Discharge Diagnosis (1) Acute hypoxemic respiratory failure: Status: Acute Code(s): J96.01 - Acute respiratory failure with hypoxia (2) Pneumonia: Status: Acute Code(s): J18.9 - Pneumonia, unspecified organism Qualifiers: Pneumonia type: due to unspecified organism Laterality: left Lung location: upper lobe of lung Qualified Code(s): J18.9 - Pneumonia, unspecified organism (3) Severe protein-calorie malnutrition: Status: Acute Code(s): E43 - Unspecified severe protein-calorie malnutrition (4) Septic shock: Status: Acute Code(s): A41.9 - Sepsis, unspecified organism; R65.21 - Severe sepsis with septic shock Medications at Discharge Home Medications albuterol sulfate 1 - 2 puff INHALATION Q6H PRN PRN 02/15/21 albuterol sulfate 2.5 mg INHALATION Q4H PRN PRN 02/15/21 amiodarone 200 mg PO DAILY 02/15/21 apixaban [Eliquis] 5 mg PO BID 02/15/21 aspirin 81 mg PO DAILY 02/15/21 digoxin 125 mcg PO DAILY 02/15/21 ferrous sulfate [FeroSul] 325 mg PO QODAY 02/15/21 metoprolol succinate 100 mg PO DAILY 02/15/21 mirtazapine 15 mg PO QHS 02/15/21 omeprazole 20 mg PO DAILY 02/15/21 prochlorperazine maleate 10 mg PO Q6H PRN 02/15/21 Hospital Course Operations None Procedures None Summary of Care Provided Hospital Course: 1. Acute hypoxic respiratory failure 2/2 lung mass and post obstructive pneumonia with COPD DW Dr. Sheffield who recommends transfer to [facility] for interventional pulmonology eval and oncology eval. 02/16: I spoke with [facility] transfer line. They are not accepting outside ICU transfers at this time (pt currently in ICU). They told me if pt is stable on medical floor for 24h, then to call back. 02/20: Patient transferred early this morning. 2. septic shock 2/2 pneumonia resolved with IVF. No pressors needed. 3. suspected gram negative pneumonia on Aztreonam, LVQ, vanc check SCx pulm toilet 4. Lung cancer f/u with med and rad onc 5. severe protein calorie malnutrition regular diet and supplement nutrition consult Weight / BMI Weight Weight: 60.3 kg Body Mass Index (BMI) 18.7 ABG / Lab / Microbiology Data Result Diagrams: 02/19/21 04:45 02/19/21 04:45 Microbiology: Microbiology 02/15/21 18:16 Blood Culture (Wb) - Anticubital Right Blood Culture - Final No growth in 5 days. 02/17/21 11:30 Sputum, Expectorated/Coughed Gram Stain - Final 02/17/21 11:30 Sputum, Expectorated/Coughed Respiratory Culture - Final 02/16/21 12:40 Urine, Random Legionella Antigen - Final 02/16/21 12:40 Urine, Random Streptococcus pneumoniae Antigen (M - Final 02/15/21 18:20 Nasal Secretion SARS-CoV-2 Antigen (Rapid) - Final Meaningful Use Info Meaningful Use Diagnoses (Choose all that apply): None applicable Discharge Plan Admission Admit Date/Time: 02/15/21 21:46 Attending Provider: Moody Tolentino Primary Care Provider: Salma Fitch CASINO ASSISTANT MANAGER Consulting Providers: Barrera Sheffield ; Wicho Castillo Discharge Orders/Prescriptions Prescriptions: No Action albuterol sulfate 2.5 mg /3 mL (0.083 %) solution for nebulization 2.5 mg inhalation Q4H PRN PRN (Reason: sob) RF: 0 amiodarone 200 mg tablet 200 mg PO DAILY RF: 0 metoprolol succinate 100 mg tablet extended release 24 hr 100 mg PO DAILY RF: 0 prochlorperazine maleate 10 mg tablet 10 mg PO Q6H PRN (Reason: Nausea) RF: 0 ferrous sulfate [FeroSul] 325 mg (65 mg iron) tablet 325 mg PO QODAY RF: 0 omeprazole 20 mg capsule,delayed release(DR/EC) 20 mg PO DAILY RF: 0 aspirin 81 mg tablet,chewable 81 mg PO DAILY RF: 0 digoxin 125 mcg (0.125 mg) tablet 125 mcg PO DAILY RF: 0 mirtazapine 15 mg tablet 15 mg PO QHS RF: 0 albuterol sulfate 90 mcg/actuation HFA aerosol inhaler 1 - 2 puff INHALATION Q6H PRN PRN (Reason: sob) RF: 0 Eliquis 5 mg tablet 5 mg PO BID RF: 0 Referrals / Follow Up: PodlogarSalma NP, CASINO ASSISTANT MANAGER-C [Primary Care Provider] - Disposition Disposition (needs filled in before D/C Order can be placed): [facility]
== END 2021-02-21 05:00 | disposition short-term general hospital (02) | DRG 871 ==
LOC: ED 22:44 → ICU 23:06 → MS2 02-19 12:46
PROVIDERS: Internal Medicine Critical Care Medicine; Admitting Provider Hospitalist; Emergency Provider Emergency Medicine; PCP Nurse Practitioner Primary Care
DX: A41.9 Sepsis, unspecified organism (principal); E43 Unspecified severe protein-calorie malnutrition; J96.01 Acute respiratory failure with hypoxia; R65.21 Severe sepsis with septic shock; J15.6 Pneumonia due to other Gram-negative bacteria; Z68.1 Body mass index [BMI] 19.9 or less, adult; C79.31 Secondary malignant neoplasm of brain; I48.92 Unspecified atrial flutter; J44.0 Chronic obstructive pulmonary disease with (acute) lower respiratory infection; J98.19 Other pulmonary collapse; C34.90 Malignant neoplasm of unspecified part of unspecified bronchus or lung; I50.22 Chronic systolic (congestive) heart failure; I42.8 Other cardiomyopathies; I48.0 Paroxysmal atrial fibrillation; I95.9 Hypotension, unspecified; K21.9 Gastro-esophageal reflux disease without esophagitis; I25.2 Old myocardial infarction; Z79.82 Long term (current) use of aspirin; Z79.899 Other long term (current) drug therapy; F17.210 Nicotine dependence, cigarettes, uncomplicated
CPT/HCPCS: 36600; 70450; 71045; 71275; 80048; 80202; 80307; 82803; 83605; 83880; 84484; 85025; 85379; 87040; 87070; 87205; 87426; 87449; 87641; 93005; 94002; 94640; 94667; 94668; 97802; 97803; 99251; 99285; J2185; J7030; J7040; J7050; Q9967; A4216; G0463; J1940